=== PATIENT | male | born 1975 | race American Indian/Alaskan Native ===

== ENCOUNTER 2017-11-11 04:17 | Inpatient (IN) | payer OTHER ==
--- NOTE | 2017-11-11 04:39 | Emergency Department Report ---
ED Chest Pain HPI - General Stated Complaint: CHEST PAIN/SWEATS Time Seen by Provider: 11/11/17 04:33 Source: patient, EMS Mode of arrival: Stretcher Limitations: No Limitations - History of Present Illness Initial Comments: Patient is a 42-year-old male presents to the ER via EMS for chest pain and shortness of breath 1 day. Patient has a history of hypertension but has been noncompliant with his medications for 3 weeks. She states she's not been feeling well due to flulike symptoms and fatigue for 2 weeks. MD Complaint: chest pain -: Sudden Onset: during rest Pain Location: substernal, left chest Pain Radiation: none Severity scale (0 -10): 7 Quality: sharp, pressure Consistency: constant Improves With: rest Worsens With: exertion, movement re: nausea, vomting, dyspnea Other Symptoms: cough, fever Treatments Prior to Arrival: none Aspirin use within the Past 7 Days: (0) No - Related Data On Oral Contraceptives: No Allergies Allergy/AdvReac Type Severity Reaction Status Date / Time No Known Allergies Allergy Unverified 11/11/17 04:39 Heart Score - HEART Score History: Slightly suspicious EKG: Non-specific Age: < 45 Risk factors: 1-2 risk factors Troponin: 1-3x normal limit HEART Score: 3 ED Review of Systems ROS: Stated complaint: CHEST PAIN/SWEATS Other details as noted in HPI Comment: All other systems reviewed and negative Constitutional: fever, malaise, weakness Eyes: as per HPI ENT: as per HPI Respiratory: cough, shortness of breath Cardiovascular: chest pain, dyspnea on exertion Endocrine: no symptoms reported Musculoskeletal: as per HPI Skin: as per HPI Neurological: as per HPI, weakness Psychiatric: as per HPI Hematological/Lymphatic: as per HPI ED Past Medical Hx - Past Medical History Previous Medical History?: Yes Hx Hypertension: Yes ED Physical Exam - General Limitations: No Limitations General appearance: alert, in no apparent distress - Head Head exam: Present: atraumatic, normocephalic - Eye Eye exam: Present: normal appearance - ENT ENT exam: Present: mucous membranes moist - Neck Neck exam: Present: normal inspection - Respiratory Respiratory exam: Present: normal lung sounds bilaterally. Absent: respiratory distress - Cardiovascular Cardiovascular Exam: Present: regular rate, normal rhythm. Absent: systolic murmur, diastolic murmur, rubs, gallop - GI/Abdominal GI/Abdominal exam: Present: soft, normal bowel sounds - Rectal Rectal exam: Present: deferred - Extremities Exam Extremities exam: Present: normal inspection - Back Exam Back exam: Present: normal inspection - Neurological Exam Neurological exam: Present: alert, oriented X3 - Psychiatric Psychiatric exam: Present: normal affect, normal mood - Skin Skin exam: Present: warm, dry, intact, normal color. Absent: rash ED Course Vital Signs 11/11/17 11/11/17 11/11/17 05:36 05:41 06:08 Temperature 99.4 F Pulse Rate 106 H 98 H 95 H Respiratory 22 Rate Blood Pressure 215/152 170/122 Blood Pressure 185/131 [Left] O2 Sat by Pulse 95 Oximetry - Reevaluation(s) Reevaluation #1: Patient denies chest pain at this time 11/11/17 05:30 MARLA score - Marla Score Age > 65: (0) No Aspirin use within the Past 7 Days: (0) No 3 or more CAD Risk Factors: (0) No 2 or more Angina events in past 24 hrs: (0) No Known CAD with more than 50% Stenosis: (0) No Elevated Cardiac Markers: (1) Yes ST Deviation Greater than 0.5mm: (0) No MARLA Score: 1 ED Medical Decision Making - Lab Data Result diagrams: 11/11/17 05:26 11/11/17 05:26 - EKG Data -: EKG Interpreted by Me EKG shows normal: sinus rhythm Rate: tachycardia - EKG Data When compared to previous EKG there are: previous EKG unavailable Interpretation: no acute changes, normal EKG - Radiology Data Radiology results: report reviewed - Medical Decision Making Patient denies chest pain at this time. Case signed out to Dr Da Silva at 0600. - Differential Diagnosis cp/sob. pna. fever. Critical care attestation.: If time is entered above; I have spent that time in minutes in the direct care of this critically ill patient, excluding procedure time. ED Disposition Clinical Impression: Chest pain, Shortness of breath, Hypoxia Disposition: OP ADMIT IP TO THIS HOSP Is pt being admited?: Yes Does the pt Need Aspirin: No Condition: Critical Time of Disposition: 06:04
[2017-11-11] MEDS ORDERED: SODIUM CHLORIDE FLUSH SYRINGE 10 ML IV PRN (04:40)
[2017-11-11] MEDS ORDERED: LOPRESSOR IV ONE ×2 (04:52→06:04)
[2017-11-11] MEDS ORDERED: ASPIRIN PO ONE (04:52)
--- NOTE | 2017-11-11 05:09 | XRay Report ---
FINAL REPORT EXAM: XR CHEST 1V AP HISTORY: Chest Pain TECHNIQUE: AP portable view(s) of the chest obtained. PRIORS: None. FINDINGS: No mediastinal shift. Cardiac silhouette is mildly enlarged and exaggerated by portable technique. There is consolidative right lower lung airspace disease and patchy right upper lung opacities. No pneumothorax or definite effusion. Metallic radiodensities project over the right scapula. IMPRESSION: Consolidative right lower and patchy right upper lung airspace disease. PA and lateral chest radiographic follow-up to resolution is recommended. Metallic radiodensities project over the right scapula. Correlation with history of penetrating trauma is requested.
[2017-11-11 05:44] LABS: Hematocrit 45.8 % (35.5-45.6); Hemoglobin 15.5 gm/dl (11.8-15.2); Mean Corpuscular HGB Conc 34 % (32-34); Mean Corpuscular Hemoglobin 30 pg (28-32); Mean Corpuscular Volume 90 fl (84-94); Platelet Count 439 K/mm3 (140-440); Red Blood Count 5.11 M/mm3 (3.65-5.03); Red Cell Distribution Width 14.6 % (13.2-15.2)
[2017-11-11 06:08] LABS: White Blood Count 20.2 K/mm3 (4.5-11.0)
[2017-11-11 06:09] LABS: Creatine Kinase MB 6.9 ng/mL (0.0-4.0)
[2017-11-11 06:10] LABS: Albumin 3.9 g/dL (3.9-5); Albumin/Globulin Ratio 1.1 %; Bilirubin,Total 0.6 mg/dL (0.1-1.2); Calcium 9.8 mg/dL (8.4-10.2); Chloride 96.5 mmol/L (98-107); Potassium 3.5 mmol/L (3.6-5.0); Total Protein 7.5 g/dL (6.3-8.2)
[2017-11-11] MEDS ORDERED: DUONEB *Not for PRN Use IH ONE ×2 (06:11→09:30)
[2017-11-11] MEDS ORDERED: ZITHROMAX 500 MG in NACL 0.9% 250ML 250 ML IV ONE (06:11)
[2017-11-11] MEDS ORDERED: ROCEPHIN/NS 1 GM/50 ML 1 GM/50 ML BAG IV ONE (06:11)
[2017-11-11] MEDS ORDERED: NACL ONE (06:14)
--- NOTE | 2017-11-11 06:19 | Emergency Department Report ---
HPI - General Chief Complaint: Chest Pain Time Seen by Provider: 11/11/17 04:33 - HPI HPI: I was signed out this case by Dr Varghese. The patient was seen and examined by myself independently. This is a 42 yo AA M who presents to the ED with the complaint of SOB, Chest pain and mixed dry and productive cough. Overall the symptoms have been going on for the past 1-2 weeks and the patient thought he had the flu or an upper respiratory infection. However, today he had an argument with his girlfriend and began having some midsternal chest pain. It was associated with some diaphoresis. He has felt like he might have a fever but has not checked his temperature. He has had a decreased appetite and says he has not eaten anything substantial in days. he denies any vomiting, back pain. No recent travel or sick contacts at home. he has a history of HTN but does not follow with a PCP and is not on any regular medication. He denies tobacco use, but does admit to smoking marijuana. He did not take anything for his symptoms prior to presentation. ED Past Medical Hx - Past Medical History Previous Medical History?: Yes Hx Hypertension: Yes ED Review of Systems ROS: Stated complaint: CHEST PAIN/SWEATS Other details as noted in HPI Constitutional: diaphoresis, fever Eyes: denies: eye pain, eye discharge, vision change ENT: denies: ear pain, throat pain Respiratory: cough, shortness of breath Cardiovascular: chest pain, dyspnea on exertion Gastrointestinal: denies: abdominal pain, vomiting Genitourinary: denies: urgency, dysuria Musculoskeletal: denies: back pain, joint swelling, arthralgia Skin: denies: rash, lesions Neurological: denies: headache, weakness, paresthesias Physical Exam - Physical Exam Vital Signs: Vital Signs 11/11/17 11/11/17 11/11/17 05:36 05:41 06:08 Temperature 99.4 F Pulse Rate 106 H 98 H 95 H Respiratory 22 Rate Blood Pressure 215/152 170/122 Blood Pressure 185/131 [Left] O2 Sat by Pulse 95 Oximetry Physical Exam: GENERAL: The patient is well-developed well-nourished. HENT: Normocephalic. Atraumatic. Patient has moist mucous membranes. EYES: Extraocular motions are intact. Pupils equal reactive to light bilaterally. NECK: Supple. Trachea is midline. CHEST/LUNGS: There is some mild wheezing with some right-sided rhonchi. There is mild tachypnea but no accessory muscle use. There is no respiratory distress noted. HEART/CARDIOVASCULAR: Regular. There is mild tachycardia. There is no murmur. ABDOMEN: Abdomen is soft, nontender. Patient has normal bowel sounds. There is no abdominal distention. SKIN: Skin is warm and dry. NEURO: The patient is awake, alert, and oriented. The patient is cooperative. The patient has no focal neurologic deficits. The patient has normal speech. MUSCULOSKELETAL: There is no tenderness or deformity. There is no limitation range of motion. There is no evidence of acute injury. ED Course Vital Signs 11/11/17 11/11/17 11/11/17 05:36 05:41 06:08 Temperature 99.4 F Pulse Rate 106 H 98 H 95 H Respiratory 22 Rate Blood Pressure 215/152 170/122 Blood Pressure 185/131 [Left] O2 Sat by Pulse 95 Oximetry ED Medical Decision Making - Lab Data Result diagrams: 11/11/17 05:26 11/11/17 05:26 - EKG Data -: EKG Interpreted by Fl EKG shows normal: sinus rhythm, axis (left axis deviation), intervals, QRS complexes (LVH), ST-T waves (nonspecific ST-T waves) Rate: tachycardia (106 bpm) - EKG Data When compared to previous EKG there are: previous EKG unavailable Interpretation: other (sinus tachycardia, left axis deviation, LVH, nonspecific ST-T waves) - Radiology Data Radiology results: report reviewed EXAM: XR CHEST 1V AP HISTORY: Chest Pain TECHNIQUE: AP portable view(s) of the chest obtained. PRIORS: None. FINDINGS: No mediastinal shift. Cardiac silhouette is mildly enlarged and exaggerated by portable technique. There is consolidative right lower lung airspace disease and patchy right upper lung opacities. No pneumothorax or definite effusion. Metallic radiodensities project over the right scapula. IMPRESSION: Consolidative right lower and patchy right upper lung airspace disease. PA and lateral chest radiographic follow-up to resolution is recommended. Metallic radiodensities project over the right scapula. Correlation with history of penetrating trauma is requested. Transcribed By: RACHEL Dictated By: DELMI TURNER MD Electronically Authenticated By: DELMI TURNER MD Signed Date/Time: 11/11/17 0106 LUNG SCAN, VENTILATION AND PERFUSION: History: Shortness of breath, elevated d-dimer. Technique: 5mci of Tc99m MAA was infused for the perfusion images. 15mci XE 133 gas was inhaled for the ventilatory images. Correlation is made with a chest x-ray dated 11/11/17 at 0450 hours. Findings: Inhalation of Xenon gas demonstrates slightly asymmetric uptake of the radiotracer with the left lung receiving more activity. There is adequate washout of the radiotracer on equilibrium images. After injection of Technetium 99m macroaggregated albumin gamma camera imaging of the lungs in multiple projections demonstrates large areas of relative decreased radiotracer accumulation throughout the right lung and left lower lobe. Chest x-ray suggests infiltrates or focal edema in these areas. It is unclear if this represents perfusion defects secondary to pneumonia, pulmonary edema or pulmonary emboli. IMPRESSION: Intermediate to high probability of pulmonary embolus. There are large areas of decreased perfusion to the right lung and left lower lobe, pulmonary emboli are difficult to exclude. Chest x-ray suggests volume overload and bilateral pulmonary edema or infiltrates. These findings were discussed with Dr. Sherman in the emergency department at 0740 hours. Transcribed By: TTR Dictated By: TRENTON OWEN JR, MD Electronically Authenticated By: TRENTON OWEN JR, MD Signed Date/Time: 11/11/17 0752 - Medical Decision Making The patient's labs show some renal insufficiency which may be acute versus chronic but is unknown since the patient does not see a physician on a regular basis. He has elevated troponin and elevated BNP levels which could be secondary to his renal sufficiency but also may be appropriate levels given his chest pain and shortness of breath. Chest x-ray shows right lower and right upper consolidative and patchy airspace disease concerning for pneumonia. V/Q scan has some perfusion deficits in these areas which also could show some fluid collection but ended up giving the VQ scan A intermediate to high probability of pulmonary embolism. The patient has been covered with Rocephin and azithromycin and will be placed on a heparin drip and will be admitted to the hospital for further evaluation and treatment. He has been accepted by the hospitalist service. - Differential Diagnosis pneumonia, CHF, PE, AL Critical Care Time: Yes Critical care time in (mins) excluding proc time.: 31 Critical care attestation.: If time is entered above; I have spent that time in minutes in the direct care of this critically ill patient, excluding procedure time. Critical care time spent on this patient during his initial evaluation, multiple re-evaluations, interpretation of labs and imaging, discussion with the radiologist, t ordering an titration of heparin drip, ordering of antibiotics, discussion and review with the patient himself. This patient was initially obtained from a colleague but the 31 minutes of critical care time mentioned was done by myself independent of any workup or evaluation done by my colleague. Critical Care Time: 31 minutes ED Disposition Clinical Impression: Shortness of breath, Hypoxia, Elevated troponin I level, Hypertensive urgency Chest pain Qualifiers: Chest pain type: unspecified Qualified Code(s): R07.9 - Chest pain, unspecified Pulmonary embolism Qualifiers: Pulmonary embolism type: other Chronicity: acute Acute cor pulmonale presence: without acute cor pulmonale Qualified Code(s): I26.99 - Other pulmonary embolism without acute cor pulmonale Disposition: 09 OP ADMIT IP TO THIS HOSP Is pt being admited?: Yes Condition: Serious Referrals: PRIMARY CARE, [Primary Care Provider] - 3-5 Days Time of Disposition: 09:20
[2017-11-11] MEDS ORDERED: cefTRIAXone 1 GM in NACL 0.9% 20 ML IV ONE (06:30)
[2017-11-11 06:44] LABS: Basophils % (Manual) 0 % (0.0-1.8); Blastocytes % (Manual) 0 %
[2017-11-11 06:45] LABS: Diff Status Complete; Platelet Estimate Consistent w Auto
[2017-11-11] MEDS ORDERED: MORPHINE IV ONE (06:46)
--- NOTE | 2017-11-11 07:57 | Nuclear Medicine Report ---
LUNG SCAN, VENTILATION AND PERFUSION: History: Shortness of breath, elevated d-dimer. Technique: 5mci of Tc99m MAA was infused for the perfusion images. 15mci XE 133 gas was inhaled for the ventilatory images. Correlation is made with a chest x-ray dated 11/11/17 at 0450 hours. Findings: Inhalation of Xenon gas demonstrates slightly asymmetric uptake of the radiotracer with the left lung receiving more activity. There is adequate washout of the radiotracer on equilibrium images. After injection of Technetium 99m macroaggregated albumin gamma camera imaging of the lungs in multiple projections demonstrates large areas of relative decreased radiotracer accumulation throughout the right lung and left lower lobe. Chest x-ray suggests infiltrates or focal edema in these areas. It is unclear if this represents perfusion defects secondary to pneumonia, pulmonary edema or pulmonary emboli. IMPRESSION: Intermediate to high probability of pulmonary embolus. There are large areas of decreased perfusion to the right lung and left lower lobe, pulmonary emboli are difficult to exclude. Chest x-ray suggests volume overload and bilateral pulmonary edema or infiltrates. These findings were discussed with Dr. Sherman in the emergency department at 0740 hours.
[2017-11-11] MEDS ORDERED: HEPARIN 10,000 UNITS/10 ML IV ONE (08:05)
[2017-11-11 08:33] LABS: Partial Thromboplastin Time 31.8 Sec. (24.2-36.6)
[2017-11-11] MEDS: HEPARIN/ 0.45% NACL-25,000 UNIT/500 ML 25,000 UNIT/500 ML BAG IV SCH (08:51)
[2017-11-11] MEDS ORDERED: ZOFRAN IV PRN (09:13)
--- NOTE | 2017-11-11 09:25 | History and Physical Report ---
<MONISHA RUBIN - Last Filed: 11/11/17 14:38> History of Present Illness Date of examination: 11/11/17 Date of admission: 11/11/2017 Chief complaint: Chest pain and shortness of breath History of present illness: Patient is a 42 years old male with past medical history of hypertension and diabetes mellitus, who presents to the ED with the complaint of SOB, Chest pain and mixed dry and productive cough. Patient was have been having dry cough, shortness of breath and flu-like symptoms for the past 2 weeks. Patient devolved yesterday Midsternal chest pain yesterday. He states that the pain began while having argument with his girlfriend. Patient described the pain as, sharp, tightness and squeezing in his chest;non- radiating. The sharp pain lasted around 5-10minute. There is no aggravating or reliving factors.He did not take anything for his symptoms prior to presentation. The painful episodes did not increase in intensity or severity during this time. Patient denies having chest pain at present time. He denies nausea, vomiting during these episodes of pain. He experienced shortness of breath, nausea, and diaphoresis during these episodes of pain. He denies vomiting. He has never had chest pain in the past. Patient admitted not taken his metformin and antihypertensive medication for the past 3 weeks because he ran out. Past History Past Medical History: diabetes, hypertension Past Surgical History: No surgical history Social history: other. denies: smoking, alcohol abuse Medications and Allergies Allergies Allergy/AdvReac Type Severity Reaction Status Date / Time No Known Allergies Allergy Verified 11/11/17 06:13 Active Meds: Active Medications Heparin Sodium/Sodium Chloride (Heparin/ 0.45% Nacl-25,000 Unit/500 Ml) 25,000 unit in 500 mls @ 30 mls/hr IV TITR FAVIAN; 1,500 UNITS/HR PRN Reason: Protocol Last Admin: 11/11/17 08:51 Dose: 1,500 units/hr, 30 mls/hr Sodium Chloride (Sodium Chloride Flush Syringe 10 Ml) 10 ml IV PRN PRN PRN Reason: LINE FLUSH Last Admin: 11/11/17 05:34 Dose: 10 ml Review of Systems Constitutional: no weight gain, no fever, no chills Cardiovascular: chest pain, lightheadedness, shortness of breath, dyspnea on exertion Respiratory: cough, shortness of breath, dyspnea on exertion Gastrointestinal: no nausea, no vomiting, no diarrhea Genitourinary Male: no hematuria, no discharge Rectal: no incontinence, no bleeding Musculoskeletal: no arm numbness/tingling, no low back pain, no shooting leg pain Integumentary: no redness, no sores, no wounds Neurological: no parathesias, no numbness, no tingling Psychiatric: no insomnia, no hypersomnia, no change in libido Endocrine: no polyphagia, no excessive thirst, no polydipsia Hematologic/Lymphatic: no easy bruising, no easy bleeding Allergic/Immunologic: no urticaria, no allergic rhinitis Exam - Constitutional Vitals: Temp Pulse Resp BP Pulse Ox 99.4 F 95 H 22 170/122 95 11/11/17 05:36 11/11/17 06:08 11/11/17 05:36 11/11/17 06:08 11/11/17 05:36 General appearance: Present: no acute distress - EENT Eyes: Present: PERRL ENT: hearing intact - Neck Neck: Present: supple - Respiratory Respiratory effort: normal Respiratory: bilateral: CTA, diminished - Cardiovascular Rhythm: regular Heart Sounds: Present: S1 & S2 - Extremities Extremities: no ischemia - Abdominal General gastrointestinal: Present: soft, non-tender Male genitourinary: Present: deferred - Rectal Rectal Exam: deferred - Integumentary Integumentary: Present: clear, warm, dry - Musculoskeletal Musculoskeletal: strength equal bilaterally - Psychiatric Psychiatric: appropriate mood/affect - Neurologic Neurologic: moves all extremities - Allied Health Allied health notes reviewed: nursing Results - Labs CBC & Chem 7: 11/11/17 05:26 11/11/17 05:26 Labs: Laboratory Last Values WBC 20.2 K/mm3 (4.5-11.0) H 11/11/17 05:26 RBC 5.11 M/mm3 (3.65-5.03) H 11/11/17 05:26 Hgb 15.5 gm/dl (11.8-15.2) H 11/11/17 05:26 Hct 45.8 % (35.5-45.6) H 11/11/17 05:26 MCV 90 fl (84-94) 11/11/17 05:26 MCH 30 pg (28-32) 11/11/17 05:26 MCHC 34 % (32-34) 11/11/17 05:26 RDW 14.6 % (13.2-15.2) 11/11/17 05:26 Plt Count 439 K/mm3 (140-440) 11/11/17 05:26 Add Manual Diff Complete 11/11/17 05:26 Total Counted 100 11/11/17 05:26 Seg Neuts % (Manual) 89.0 % (40.0-70.0) H 11/11/17 05:26 Band Neutrophils % 0 % 11/11/17 05:26 Lymphocytes % (Manual) 8.0 % (13.4-35.0) L 11/11/17 05:26 Reactive Lymphs % (Man) 1.0 % 11/11/17 05:26 Monocytes % (Manual) 1.0 % (0.0-7.3) 11/11/17 05:26 Eosinophils % (Manual) 1.0 % (0.0-4.3) 11/11/17 05:26 Basophils % (Manual) 0 % (0.0-1.8) 11/11/17 05:26 Metamyelocytes % 0 % 11/11/17 05:26 Myelocytes % 0 % 11/11/17 05:26 Promyelocytes % 0 % 11/11/17 05:26 Blast Cells % 0 % 11/11/17 05:26 Nucleated RBC % Not Reportable 11/11/17 05:26 Seg Neutrophils # Man 18.0 K/mm3 (1.8-7.7) H 11/11/17 05:26 Band Neutrophils # 0.0 K/mm3 11/11/17 05:26 Lymphocytes # (Manual) 1.6 K/mm3 (1.2-5.4) 11/11/17 05:26 Abs React Lymphs (Man) 0.2 K/mm3 11/11/17 05:26 Monocytes # (Manual) 0.2 K/mm3 (0.0-0.8) 11/11/17 05:26 Eosinophils # (Manual) 0.2 K/mm3 (0.0-0.4) 11/11/17 05:26 Basophils # (Manual) 0.0 K/mm3 (0.0-0.1) 11/11/17 05:26 Metamyelocytes # 0.0 K/mm3 11/11/17 05:26 Myelocytes # 0.0 K/mm3 11/11/17 05:26 Promyelocytes # 0.0 K/mm3 11/11/17 05:26 Blast Cells # 0.0 K/mm3 11/11/17 05:26 WBC Morphology Not Reportable 11/11/17 05:26 Hypersegmented Neuts Not Reportable 11/11/17 05:26 Hyposegmented Neuts Not Reportable 11/11/17 05:26 Hypogranular Neuts Not Reportable 11/11/17 05:26 Smudge Cells Not Reportable 11/11/17 05:26 Toxic Granulation Not Reportable 11/11/17 05:26 Toxic Vacuolation Not Reportable 11/11/17 05:26 Dohle Bodies Not Reportable 11/11/17 05:26 Pelger-Huet Anomaly Not Reportable 11/11/17 05:26 Lola Rods Not Reportable 11/11/17 05:26 Platelet Estimate Consistent w auto 11/11/17 05:26 Clumped Platelets Not Reportable 11/11/17 05:26 Plt Clumps, EDTA Not Reportable 11/11/17 05:26 Large Platelets Not Reportable 11/11/17 05:26 Giant Platelets Not Reportable 11/11/17 05:26 Platelet Satelliting Not Reportable 11/11/17 05:26 Plt Morphology Comment Not Reportable 11/11/17 05:26 RBC Morphology Not Reportable 11/11/17 05:26 Dimorphic RBCs Not Reportable 11/11/17 05:26 Polychromasia Not Reportable 11/11/17 05:26 Hypochromasia Not Reportable 11/11/17 05:26 Poikilocytosis Not Reportable 11/11/17 05:26 Anisocytosis Not Reportable 11/11/17 05:26 Microcytosis Not Reportable 11/11/17 05:26 Macrocytosis Not Reportable 11/11/17 05:26 Spherocytes Not Reportable 11/11/17 05:26 Pappenheimer Bodies Not Reportable 11/11/17 05:26 Sickle Cells Not Reportable 11/11/17 05:26 Target Cells Not Reportable 11/11/17 05:26 Tear Drop Cells Not Reportable 11/11/17 05:26 Ovalocytes Not Reportable 11/11/17 05:26 Helmet Cells Not Reportable 11/11/17 05:26 [place] Bodies Not Reportable 11/11/17 05:26 [place] Rings Not Reportable 11/11/17 05:26 [place] Cells Not Reportable 11/11/17 05:26 Bite Cells Not Reportable 11/11/17 05:26 Crenated Cell Not Reportable 11/11/17 05:26 Elliptocytes Not Reportable 11/11/17 05:26 Acanthocytes (Spur) Not Reportable 11/11/17 05:26 Rouleaux Not Reportable 11/11/17 05:26 Hemoglobin C Crystals Not Reportable 11/11/17 05:26 Schistocytes Not Reportable 11/11/17 05:26 Malaria parasites Not Reportable 11/11/17 05:26 Param Bodies Not Reportable 11/11/17 05:26 Hem Pathologist Commnt No 11/11/17 05:26 PT 13.7 Sec. (12.2-14.9) 11/11/17 08:10 INR 1.00 (0.87-1.13) 11/11/17 08:10 APTT 31.8 Sec. (24.2-36.6) 11/11/17 08:10 D-Dimer 886.47 ng/mlDDU (0-234) H 11/11/17 05:26 Sodium 142 mmol/L (137-145) 11/11/17 05:26 Potassium 3.5 mmol/L (3.6-5.0) L 11/11/17 05:26 Chloride 96.5 mmol/L (98-107) L 11/11/17 05:26 Carbon Dioxide 27 mmol/L (22-30) 11/11/17 05:26 Anion Gap 22 mmol/L 11/11/17 05:26 BUN 26 mg/dL (9-20) H 11/11/17 05:26 Creatinine 2.3 mg/dL (0.8-1.5) H 11/11/17 05:26 Estimated GFR 38 ml/min 11/11/17 05:26 BUN/Creatinine Ratio 11 % 11/11/17 05:26 Glucose 185 mg/dL (75-100) H 11/11/17 05:26 Lactic Acid 1.20 mmol/L (0.7-2.0) 11/11/17 06:26 Calcium 9.8 mg/dL (8.4-10.2) 11/11/17 05:26 Total Bilirubin 0.60 mg/dL (0.1-1.2) 11/11/17 05:26 AST 17 units/L (5-40) 11/11/17 05:26 ALT 27 units/L (7-56) 11/11/17 05:26 Alkaline Phosphatase 108 units/L (35-129) 11/11/17 05:26 Total Creatine Kinase 205 units/L (55-170) H 11/11/17 05:26 CK-MB (CK-2) 6.9 ng/mL (0.0-4.0) H 11/11/17 05:26 CK-MB (CK-2) Rel Index 3.3 (0-4) 11/11/17 05:26 Troponin T 0.050 ng/mL (0.00-0.029) H 11/11/17 08:07 NT-Pro-B Natriuret Pep 17601 pg/mL (0-450) H 11/11/17 05:26 Total Protein 7.5 g/dL (6.3-8.2) 11/11/17 05:26 Albumin 3.9 g/dL (3.9-5) 11/11/17 05:26 Albumin/Globulin Ratio 1.1 % 11/11/17 05:26 Triglycerides 271 mg/dL (2-149) H 11/11/17 05:26 Cholesterol 243 mg/dL (50-199) H 11/11/17 05:26 LDL Cholesterol Direct 146 mg/dL (50-130) H 11/11/17 05:26 HDL Cholesterol 43 mg/dL (40-59) 11/11/17 05:26 Cholesterol/HDL Ratio 5.65 % 11/11/17 05:26 - Imaging and Cardiology Chest x-ray: image reviewed (consolidative right lower and patchy to right upper lung) Assessment and Plan Assessment and plan: Patient is a 42 years old male with past medical history of hypertension and diabetes mellitus, who presents to the ED with the complaint of SOB, Chest pain and mixed dry and productive cough. Patient was have been having dry cough, shortness of breath and flu-like symptoms for the past 2 weeks. Patient devolved yesterday Midsternal chest pain yesterday. Sepsis secondray to Pneumonia Culture collected prior to antibiotic Follow blood cultures IV empiric Rocephin and azithromycin given in the ED. We 'll change him to IV Levaquin Supportive care Pneumonia Chest xray shows consolidative right lower and patchy to right upper lung Started on IV Levaquin Chest Pain We will admit to telemetry floor. EKG normal sinus, no ST elevation or T-wave inversion. Positive cardiac enzyme X3 Start on aspirin Nitroglycerin when necessary Morphine ordered for pain Stress test ordered. Cardiology evaluation Acute septic Pulmonary embolism VQ scan revealed intermediate to high probability pulmonary embolus Started on heparin treatment Acute renal failure/vasomotor nephropathy Started on IV fluids, as renal function not improve with fluids we will consider nephrology RENAL ultrasound Repeat BMP in the a.m. Closely monitor Hypokalemia Replaced Repeat BMP Closely monitor electrolytes Hypertension Resume home antihypertensive medication IV hydralazine for SBP>160 Closely monitor blood pressure Hyperlipidemia Started on Lipitor Elevated D-dimer Secondary to pulmonary embolus; on heparin drip DVT prophylaxis heparin drip Advance Directives: Yes VTE prophylaxis?: Chemical Contraindication Mechanical VTE Prophylaxis: Treatment Not Indicated Plan of care discussed with patient/family: Yes <LFOR HUGHES M - Last Filed: 11/12/17 16:45> History of Present Illness Date of admission: 11/11/17 09:13 Medications and Allergies Active Meds: Active Medications Acetaminophen (Tylenol) 650 mg PO Q4H PRN PRN Reason: Pain MILD(1-3)/Fever >100.5/FOWLER Last Admin: 11/11/17 22:43 Dose: 650 mg Albuterol/Ipratropium (Duoneb *Not For Prn Use*) 1 ampul IH Q6HRT [facility] Last Admin: 11/12/17 15:51 Dose: 1 ampul Amlodipine Besylate (Norvasc) 10 mg PO QDAY [facility] Last Admin: 11/12/17 10:50 Dose: 10 mg Aspirin (Aspirin) 325 mg PO QDAY [facility] Last Admin: 11/12/17 10:50 Dose: 325 mg Atorvastatin Calcium (Lipitor) 40 mg PO QHS [facility] Last Admin: 11/11/17 22:41 Dose: 40 mg Bisacodyl (Dulcolax) 10 mg VT QDAY PRN PRN Reason: Constipation unrelieved by MOM Dextrose (D50w (25gm) Syringe) 50 ml IV PRN PRN PRN Reason: Hypoglycemia Hydralazine HCl (Apresoline) 10 mg IV Q4H PRN PRN Reason: Blood Pressure Last Admin: 11/12/17 14:38 Dose: 10 mg Heparin Sodium/Sodium Chloride (Heparin/ 0.45% Nacl-25,000 Unit/500 Ml) 25,000 unit in 500 mls @ 30 mls/hr IV TITR FAVIAN; 1,500 UNITS/HR PRN Reason: Protocol Last Admin: 11/12/17 14:35 Dose: 2,100 units/hr, 42 mls/hr Piperacillin Sod/Tazobactam Sod (Zosyn/Ns 4.5gm/100ml) 4.5 gm in 100 mls @ 200 mls/hr IV Q6HR FAVIAN PRN Reason: Protocol Insulin Aspart (Novolog) 0 units SUB-Q AC FAVIAN PRN Reason: Protocol Last Admin: 11/12/17 14:36 Dose: 4 units Insulin Aspart (Novolog) 0 units SUB-Q QHS FAVIAN PRN Reason: Protocol Last Admin: 11/11/17 22:42 Dose: 3 units Metoprolol Tartrate (Lopressor) 50 mg PO TID FAVIAN Morphine Sulfate (Morphine) 2 mg IV Q4H PRN PRN Reason: Pain, Moderate (4-6) Last Admin: 11/12/17 05:15 Dose: 2 mg Ondansetron HCl (Zofran) 4 mg IV Q8H PRN PRN Reason: N/V unrelieved by Reglan Last Admin: 11/11/17 17:24 Dose: 4 mg Sodium Chloride (Sodium Chloride Flush Syringe 10 Ml) 10 ml IV PRN PRN PRN Reason: LINE FLUSH Last Admin: 11/11/17 05:34 Dose: 10 ml Vancomycin HCl (Vancomycin Pharmacy To Dose) 1 each IV PKCONSULT FAVIAN PRN Reason: Protocol Exam - Constitutional Vitals: Temp Pulse Resp BP Pulse Ox 97.6 F 114 H 33 H 168/101 91 11/12/17 07:58 11/12/17 16:25 11/12/17 16:25 11/12/17 14:38 11/12/17 15:51 Results - Labs CBC & Chem 7: 11/12/17 04:52 11/12/17 04:52 Labs: Laboratory Last Values WBC 28.6 K/mm3 (4.5-11.0) H 11/12/17 04:52 RBC 4.42 M/mm3 (3.65-5.03) 11/12/17 04:52 Hgb 13.2 gm/dl (11.8-15.2) 11/12/17 04:52 Hct 39.6 % (35.5-45.6) D 11/12/17 04:52 MCV 90 fl (84-94) 11/12/17 04:52 MCH 30 pg (28-32) 11/12/17 04:52 MCHC 33 % (32-34) 11/12/17 04:52 RDW 14.9 % (13.2-15.2) 11/12/17 04:52 Plt Count 445 K/mm3 (140-440) H 11/12/17 04:52 Add Manual Diff Complete 11/12/17 04:52 Total Counted 100 11/12/17 04:52 Seg Neuts % (Manual) 90.0 % (40.0-70.0) H 11/12/17 04:52 Band Neutrophils % 0 % 11/12/17 04:52 Lymphocytes % (Manual) 5.0 % (13.4-35.0) L 11/12/17 04:52 Reactive Lymphs % (Man) 0 % 11/12/17 04:52 Monocytes % (Manual) 5.0 % (0.0-7.3) 11/12/17 04:52 Eosinophils % (Manual) 0 % (0.0-4.3) 11/12/17 04:52 Basophils % (Manual) 0 % (0.0-1.8) 11/12/17 04:52 Metamyelocytes % 0 % 11/12/17 04:52 Myelocytes % 0 % 11/12/17 04:52 Promyelocytes % 0 % 11/12/17 04:52 Blast Cells % 0 % 11/12/17 04:52 Nucleated RBC % Not Reportable 11/12/17 04:52 Seg Neutrophils # Man 25.7 K/mm3 (1.8-7.7) H 11/12/17 04:52 Band Neutrophils # 0.0 K/mm3 11/12/17 04:52 Lymphocytes # (Manual) 1.4 K/mm3 (1.2-5.4) 11/12/17 04:52 Abs React Lymphs (Man) 0.0 K/mm3 11/12/17 04:52 Monocytes # (Manual) 1.4 K/mm3 (0.0-0.8) H 11/12/17 04:52 Eosinophils # (Manual) 0.0 K/mm3 (0.0-0.4) 11/12/17 04:52 Basophils # (Manual) 0.0 K/mm3 (0.0-0.1) 11/12/17 04:52 Metamyelocytes # 0.0 K/mm3 11/12/17 04:52 Myelocytes # 0.0 K/mm3 11/12/17 04:52 Promyelocytes # 0.0 K/mm3 11/12/17 04:52 Blast Cells # 0.0 K/mm3 11/12/17 04:52 WBC Morphology Not Reportable 11/12/17 04:52 Hypersegmented Neuts Not Reportable 11/12/17 04:52 Hyposegmented Neuts Not Reportable 11/12/17 04:52 Hypogranular Neuts Not Reportable 11/12/17 04:52 Smudge Cells Not Reportable 11/12/17 04:52 Toxic Granulation Not Reportable 11/12/17 04:52 Toxic Vacuolation Not Reportable 11/12/17 04:52 Dohle Bodies Not Reportable 11/12/17 04:52 Pelger-Huet Anomaly Not Reportable 11/12/17 04:52 Lola Rods Not Reportable 11/12/17 04:52 Platelet Estimate Consistent w auto 11/12/17 04:52 Clumped Platelets Not Reportable 11/12/17 04:52 Plt Clumps, EDTA Not Reportable 11/12/17 04:52 Large Platelets Not Reportable 11/12/17 04:52 Giant Platelets Not Reportable 11/12/17 04:52 Platelet Satelliting Not Reportable 11/12/17 04:52 Plt Morphology Comment Not Reportable 11/12/17 04:52 RBC Morphology Normal 11/12/17 04:52 Dimorphic RBCs Not Reportable 11/12/17 04:52 Polychromasia Not Reportable 11/12/17 04:52 Hypochromasia Not Reportable 11/12/17 04:52 Poikilocytosis Not Reportable 11/12/17 04:52 Anisocytosis Not Reportable 11/12/17 04:52 Microcytosis Not Reportable 11/12/17 04:52 Macrocytosis Not Reportable 11/12/17 04:52 Spherocytes Not Reportable 11/12/17 04:52 Pappenheimer Bodies Not Reportable 11/12/17 04:52 Sickle Cells Not Reportable 11/12/17 04:52 Target Cells Not Reportable 11/12/17 04:52 Tear Drop Cells Not Reportable 11/12/17 04:52 Ovalocytes Not Reportable 11/12/17 04:52 Helmet Cells Not Reportable 11/12/17 04:52 [place] Bodies Not Reportable 11/12/17 04:52 [place] Rings Not Reportable 11/12/17 04:52 [place] Cells Not Reportable 11/12/17 04:52 Bite Cells Not Reportable 11/12/17 04:52 Crenated Cell Not Reportable 11/12/17 04:52 Elliptocytes Not Reportable 11/12/17 04:52 Acanthocytes (Spur) Not Reportable 11/12/17 04:52 Rouleaux Not Reportable 11/12/17 04:52 Hemoglobin C Crystals Not Reportable 11/12/17 04:52 Schistocytes Not Reportable 11/12/17 04:52 Malaria parasites Not Reportable 11/12/17 04:52 Param Bodies Not Reportable 11/12/17 04:52 Hem Pathologist Commnt No 11/12/17 04:52 PT 13.7 Sec. (12.2-14.9) 11/11/17 08:10 INR 1.00 (0.87-1.13) 11/11/17 08:10 APTT 31.8 Sec. (24.2-36.6) 11/11/17 08:10 D-Dimer 886.47 ng/mlDDU (0-234) H 11/11/17 05:26 Heparin Anti-Xa Level 0.15 U.I./ml (0.3-0.7) L 11/12/17 11:17 POC ABG pH 7.456 (7.35-7.45) H 11/11/17 20:39 POC ABG pCO2 36.0 (35-45) 11/11/17 20:39 POC ABG pO2 77 (80-105) L 11/11/17 20:39 POC ABG HCO3 25.3 11/11/17 20:39 POC ABG Total CO2 26 11/11/17 20:39 POC ABG O2 Sat 96 11/11/17 20:39 POC ABG Base Excess 1 11/11/17 20:39 FiO2 100 % 11/11/17 20:39 Sodium 138 mmol/L (137-145) 11/12/17 04:52 Potassium 3.9 mmol/L (3.6-5.0) 11/12/17 04:52 Chloride 95.6 mmol/L (98-107) L 11/12/17 04:52 Carbon Dioxide 24 mmol/L (22-30) 11/12/17 04:52 Anion Gap 22 mmol/L 11/12/17 04:52 BUN 35 mg/dL (9-20) H 11/12/17 04:52 Creatinine 2.6 mg/dL (0.8-1.5) H 11/12/17 04:52 Estimated GFR 33 ml/min 11/12/17 04:52 BUN/Creatinine Ratio 13 % 11/12/17 04:52 Glucose 143 mg/dL (75-100) H 11/12/17 04:52 POC Glucose 262 (70-105) H 11/12/17 11:53 Hemoglobin A1c 6.6 % (4-6) H 11/11/17 09:34 Lactic Acid 1.20 mmol/L (0.7-2.0) 11/11/17 06:26 Calcium 9.0 mg/dL (8.4-10.2) 11/12/17 04:52 Total Bilirubin 0.60 mg/dL (0.1-1.2) 11/11/17 05:26 AST 17 units/L (5-40) 11/11/17 05:26 ALT 27 units/L (7-56) 11/11/17 05:26 Alkaline Phosphatase 108 units/L (35-129) 11/11/17 05:26 Total Creatine Kinase 205 units/L (55-170) H 11/11/17 05:26 CK-MB (CK-2) 6.9 ng/mL (0.0-4.0) H 11/11/17 05:26 CK-MB (CK-2) Rel Index 3.3 (0-4) 11/11/17 05:26 Troponin T 0.047 ng/mL (0.00-0.029) H 11/11/17 18:00 NT-Pro-B Natriuret Pep 79758 pg/mL (0-450) H 11/11/17 05:26 Total Protein 7.5 g/dL (6.3-8.2) 11/11/17 05:26 Albumin 3.9 g/dL (3.9-5) 11/11/17 05:26 Albumin/Globulin Ratio 1.1 % 11/11/17 05:26 Triglycerides 271 mg/dL (2-149) H 11/11/17 05:26 Cholesterol 243 mg/dL (50-199) H 11/11/17 05:26 LDL Cholesterol Direct 146 mg/dL (50-130) H 11/11/17 05:26 HDL Cholesterol 43 mg/dL (40-59) 11/11/17 05:26 Cholesterol/HDL Ratio 5.65 % 11/11/17 05:26 Assessment and Plan Assessment and plan: I saw and evaluated the patient. I agree with the findings and the plan of care as documented in the Nurse Practitioner's H/P note.
[2017-11-11] MEDS ORDERED: TYLENOL PO PRN (10:00)
[2017-11-11] MEDS ORDERED: ZITHROMAX 500 MG in NACL 0.9% 250ML 250 ML IV SCH (10:00)
[2017-11-11] MEDS ORDERED: DULCOLAX PR PRN (10:00)
[2017-11-11] MEDS ORDERED: D50W (25GM) Syringe IV PRN (10:00)
[2017-11-11] MEDS: ASPIRIN PO SCH (10:23)
[2017-11-11] MEDS: NOVOLOG SUB-Q SCH ×3 (12:48→22:42)
[2017-11-11] MEDS ORDERED: K-DUR PO NR (14:30)
--- NOTE | 2017-11-11 14:49 | Consultation ---
History of Present Illness Consult date: 11/11/17 Requesting physician: MONISHA RUBIN Consult reason: chest pain History of present illness: The pt is a 42 YO male with a past medical history significant for HTN, PNA (5 years ago requiring mechanical ventilation), and marijuana use. He is previously unknown to our practice. He presented with c/o SOB, chest pain and cold-like symptoms. He states that for the past 1 week he has been experiencing SOB, possible fever, chills, chest congestion, and dry cough and thought he was suffering from the flu. Last night, he was arguing with his girlfriend when he noted the onset of midsternal chest tightness. The pain was associated with some diaphoresis. He then called EMS. He denies any palpitations, n/v, dizziness or syncope. His BP following ED arrival was noted to be 215/152. He reports that he ran out of his anti-hypertensive medications, including lopressor, 2 weeks ago and he does not regularly see a PCP. Also following arrival, CXR showed consolidative right lower and patchy right upper lung airspace disease concerning for PNA. DDimer was elevated and V/Q showed intermediate to high probability of PE with large areas of decreased perfusion to right lung and left lower lobe, pulm emboli difficult to exclude. WBC 20.2; BUN/Cr 26/2.3; K+ 3.5; pro-BNP 28327; trop 0.056 -> 0.050 -> 0.044. On evaluation, pt c/o SOB but reports chest pain has resolved. Pt denies any prior cardiac issues or cardiac w/u. Past History Past Medical History: diabetes, hypertension Past Surgical History: No surgical history Social history: other (marijuana use). denies: smoking, alcohol abuse Medications and Allergies Allergies Allergy/AdvReac Type Severity Reaction Status Date / Time No Known Allergies Allergy Verified 11/11/17 06:13 Active Meds: Active Medications Acetaminophen (Tylenol) 650 mg PO Q4H PRN PRN Reason: Pain MILD(1-3)/Fever >100.5/FOWLER Aspirin (Aspirin) 325 mg PO QDAY [facility] Last Admin: 11/11/17 10:23 Dose: 325 mg Atorvastatin Calcium (Lipitor) 40 mg PO QHS FAVIAN Bisacodyl (Dulcolax) 10 mg MI QDAY PRN PRN Reason: Constipation unrelieved by MOM Dextrose (D50w (25gm) Syringe) 50 ml IV PRN PRN PRN Reason: Hypoglycemia Hydralazine HCl (Apresoline) 10 mg IV Q4H PRN PRN Reason: Blood Pressure Heparin Sodium/Sodium Chloride (Heparin/ 0.45% Nacl-25,000 Unit/500 Ml) 25,000 unit in 500 mls @ 30 mls/hr IV TITR FAVIAN; 1,500 UNITS/HR PRN Reason: Protocol Last Admin: 11/11/17 08:51 Dose: 1,500 units/hr, 30 mls/hr Insulin Aspart (Novolog) 0 units SUB-Q AC FAVIAN PRN Reason: Protocol Last Admin: 11/11/17 12:48 Dose: 3 units Insulin Aspart (Novolog) 0 units SUB-Q QHS FAVIAN PRN Reason: Protocol Morphine Sulfate (Morphine) 2 mg IV Q4H PRN PRN Reason: Pain, Moderate (4-6) Ondansetron HCl (Zofran) 4 mg IV Q8H PRN PRN Reason: N/V unrelieved by Reglan Potassium Chloride (K-Dur) 20 meq PO ONCE NR Stop: 11/11/17 15:00 Sodium Chloride (Sodium Chloride Flush Syringe 10 Ml) 10 ml IV PRN PRN PRN Reason: LINE FLUSH Last Admin: 11/11/17 05:34 Dose: 10 ml Review of Systems Constitutional: fever, chills, sweats, no weight loss, no weight gain Ears, nose, mouth and throat: no ear pain, no nose pain, no sinus pressure, no sinus pain Cardiovascular: chest pain, shortness of breath, dyspnea on exertion, high blood pressure, decreased exercise tolerance, no orthopnea, no palpitations, no rapid/irregular heart beat, no edema, no syncope, no lightheadedness, no paroxysmal nocturnal dyspnea, no leg edema Respiratory: cough, shortness of breath, dyspnea on exertion, congestion, no cough with sputum, no wheezing, no pain on inspiration Gastrointestinal: no abdominal pain, no nausea, no vomiting, no diarrhea, no constipation, no change in bowel habits Genitourinary Male: no dysuria, no hematuria, no flank pain, no discharge, no urinary frequency, no urinary hesitancy Musculoskeletal: no neck stiffness, no neck pain, no shooting arm pain, no arm numbness/tingling, no low back pain, no shooting leg pain, no leg numbness/ tingling, no redness of joints Integumentary: no rash, no pruritis, no redness, no sores, no wounds Neurological: no head injury Psychiatric: no anxiety Endocrine: no cold intolerance, no heat intolerance Hematologic/Lymphatic: no easy bruising, no easy bleeding, no lymphadenopathy Allergic/Immunologic: no urticaria, no wheezing Physical Examination Vital Signs Temp Pulse Resp BP Pulse Ox 99.4 F 106 H 22 215/152 95 11/11/17 05:36 11/11/17 05:36 11/11/17 05:36 11/11/17 05:36 11/11/17 05:36 General appearance: no acute distress HEENT: Positive: PERRL, Normocephaly, Mucus Membranes Moist Neck: Positive: neck supple, trachea midline Cardiac: Positive: Reg Rate and Rhythm, S1/S2 Lungs: Positive: Decreased Breath Sounds, Rhonchi Neuro: Positive: Grossly Intact, Cranial Nerve 2-12 Intact Abdomen: Positive: Unremarkable, Soft, Active Bowel Sounds. Negative: Tender Skin: Positive: Clear. Negative: Rash, Wound Musculoskeletal: No Fluid Collection, No Pain, Normal Range of Motion Extremities: Absent: edema Results 11/11/17 05:26 11/11/17 05:26 Cardiac Enzymes 11/11/17 Range/Units 05:26 AST 17 (5-40) units/L CK-MB (CK-2) 6.9 H (0.0-4.0) ng/mL Coagulation 11/11/17 Range/Units 08:10 PT 13.7 (12.2-14.9) Sec. INR 1.00 (0.87-1.13) APTT 31.8 (24.2-36.6) Sec. Lipids 11/11/17 Range/Units 05:26 Triglycerides 271 H (2-149) mg/dL Cholesterol 243 H (50-199) mg/dL HDL Cholesterol 43 (40-59) mg/dL Cholesterol/HDL Ratio 5.65 % CBC 11/11/17 Range/Units 05:26 WBC 20.2 H (4.5-11.0) K/mm3 RBC 5.11 H (3.65-5.03) M/mm3 Hgb 15.5 H (11.8-15.2) gm/dl Hct 45.8 H (35.5-45.6) % Plt Count 439 (140-440) K/mm3 Comprehensive Metabolic Panel 11/11/17 Range/Units 05:26 Sodium 142 (137-145) mmol/L Potassium 3.5 L (3.6-5.0) mmol/L Chloride 96.5 L (98-107) mmol/L Carbon Dioxide 27 (22-30) mmol/L BUN 26 H (9-20) mg/dL Creatinine 2.3 H (0.8-1.5) mg/dL Glucose 185 H (75-100) mg/dL Calcium 9.8 (8.4-10.2) mg/dL AST 17 (5-40) units/L ALT 27 (7-56) units/L Alkaline Phosphatase 108 (35-129) units/L Total Protein 7.5 (6.3-8.2) g/dL Albumin 3.9 (3.9-5) g/dL - Imaging and Cardiology Echo: pending EKG: report reviewed, image reviewed EKG interpretations - Telemetry EKG Rhythm: Sinus Tachycardia Chamber hypertrophy or enlargement: left ventricular hypertro Repolarization changes or abnormalities: ST or T wave suggestive of ischemia Assessment and Plan Assessment: PNA Acute PE Hypertensive urgency Acute renal failure Elevated troponins - flat; currently nonspecific in setting of HTN urgency, ARF , PNA, PE. Chest pain, atypical - currently resolved Sinus tachycardia - physiologic Marijuana use - cessation encouraged Plan: Obtain echo. Optimize anti-hypertensive regimen. Obtain BLE duplex. Heparin gtt and IV abx per primary. Consider nephrology and pulmonary consultations per primary. Assessment and plan reviewed with pt at bedside. The patient has been seen in conjunction with Dr. White who agrees with the assessment and plan of care.
[2017-11-11] MEDS ORDERED: NORVASC PO SCH (16:00)
[2017-11-11] MEDS: MORPHINE IV PRN (17:25)
[2017-11-11] MEDS: NORVASC PO SCH (17:25)
[2017-11-11] MEDS: APRESOLINE IV PRN (17:25)
[2017-11-11] MEDS ORDERED: DILAUDID ONE (17:44)
[2017-11-11] MEDS ORDERED: DILAUDID IV ONE (17:45)
[2017-11-11 20:49] LABS: ISTAT Base Excess 1; ISTAT HCO3 25.3; ISTAT PH 7.456 (7.35-7.45); ISTAT PO2 77 (80-105); ISTAT SO2 96; ISTAT TCO2 26
[2017-11-11] MEDS ORDERED: LOPRESSOR ONE (22:35)
[2017-11-11] MEDS ORDERED: NOVOLOG SUB-Q ONE (22:36)
[2017-11-11] MEDS ORDERED: TYLENOL ONE (22:38)
[2017-11-11] MEDS: LOPRESSOR PO SCH (22:41)
[2017-11-12] MEDS: HEPARIN/ 0.45% NACL-25,000 UNIT/500 ML 25,000 UNIT/500 ML BAG IV SCH ×4 (00:48→14:35)
[2017-11-12] MEDS ORDERED: HEPARIN 10,000 UNITS/10 ML IV ONE (05:05)
[2017-11-12] MEDS: MORPHINE IV PRN ×2 (05:15→17:53)
[2017-11-12 05:41] LABS: Chloride 95.6 mmol/L (98-107); Hematocrit 39.6 % (35.5-45.6); Hemoglobin 13.2 gm/dl (11.8-15.2); Mean Corpuscular HGB Conc 33 % (32-34); Mean Corpuscular Hemoglobin 30 pg (28-32); Mean Corpuscular Volume 90 fl (84-94); Platelet Count 445 K/mm3 (140-440); Potassium 3.9 mmol/L (3.6-5.0); Red Blood Count 4.42 M/mm3 (3.65-5.03); Red Cell Distribution Width 14.9 % (13.2-15.2)
[2017-11-12 06:20] LABS: White Blood Count 28.6 K/mm3 (4.5-11.0)
[2017-11-12] MEDS: NOVOLOG SUB-Q SCH ×4 (07:30→22:44)
[2017-11-12] MEDS: DUONEB *Not for PRN Use IH SCH ×3 (07:42→20:44)
--- NOTE | 2017-11-12 08:07 | Vascular Lab Report ---
LOWER EXTREMITY VENOUS DUPLEX: REASON FOR EXAM: Pulmonary embolism. COMMENTS ON THE RIGHT: All veins visualized are freely compressible without evidence of internal echogenicity. Flow is spontaneous and phasic throughout. COMMENTS ON THE LEFT: All veins visualized are freely compressible without evidence of internal echogenicity. Flow is spontaneous and phasic throughout. IMPRESSION: No evidence of acute or chronic deep venous thrombosis in either lower extremity.
[2017-11-12 08:08] LABS: Basophils % (Manual) 0 % (0.0-1.8); Blastocytes % (Manual) 0 %; Diff Status Complete; Eosinophils % (Manual) 0 % (0.0-4.3); Platelet Estimate Consistent w Auto; RBC Morphology Normal
[2017-11-12] MEDS ORDERED: ZITHROMAX 500 MG in NACL 0.9% 250ML 250 ML IV SCH (10:00)
[2017-11-12] MEDS ORDERED: cefTRIAXone 1 GM in NACL 0.9% 20 ML IV SCH (10:00)
[2017-11-12] MEDS: LOPRESSOR PO SCH ×2 (10:50→21:00)
[2017-11-12] MEDS: ASPIRIN PO SCH (10:50)
[2017-11-12] MEDS: NORVASC PO SCH (10:50)
[2017-11-12] MEDS: APRESOLINE IV PRN ×2 (14:38→23:14)
--- NOTE | 2017-11-12 15:06 | Progress Note ---
Assessment and Plan Assessment: PNA Acute respiratory failure Acute PE Dilated CMP - EF 25-30% Hypertensive urgency Acute renal failure - renal indices trending upwards. Elevated troponins - flat; currently nonspecific in setting of HTN urgency, ARF , PNA, PE. Chest pain, atypical - currently resolved Sinus tachycardia - physiologic Marijuana use - cessation encouraged Plan: Echo reviewed - EF 25-30%, mild LVH, LV mild to moderately dilated, LA mildly dilated, mild MR, trace TR, RVSP 32mmHg, no evidence of RV strain. Optimize anti-hypertensive regimen. No ACEI/ARB at this time in setting of renal insufficiency. BLE duplex negative for VTE. Heparin gtt and IV abx per primary. WBCs trending up. Recommend nephrology and pulmonary consultations per primary. Plan for ischemic evaluation for further eval of CMP etiology once medically stabilized. Assessment and plan reviewed with pt at bedside. The patient has been seen in conjunction with Dr. White who agrees with the assessment and plan of care. Subjective Date of service: 11/12/17 Principal diagnosis: PNA; PE; HF Interval history: pt sitting at bedside, on O2 via NRB, states SOB is the same as yesterday. tachypneic. appears anxious and c/o anxiety. ST on tele overnight. BPs remain elevated. Objective Last Vital Signs Temp 97.6 F 11/12/17 07:58 Pulse 114 H 11/12/17 14:38 Resp 34 H 11/12/17 08:00 BP 168/101 11/12/17 14:38 Pulse Ox 91 11/12/17 10:54 - Physical Examination General: Other (tachypneic) HEENT: Positive: PERRL, Normocephaly, Mucus Membranes Moist Neck: Positive: neck supple, trachea midline Cardiac: Positive: Regular Rhythm, S1/S2, Tachycardia Lungs: Positive: Rhonchi, Oxygen Neuro: Positive: Grossly Intact, Cranial Nerve 2-12 Intact Abdomen: Positive: Unremarkable, Soft, Active Bowel Sounds. Negative: Tender Skin: Positive: Clear. Negative: Rash, Wound Musculoskeletal: No Fluid Collection, No Pain, Normal Range of Motion Extremities: Absent: edema - Labs and Meds CBC 11/12/17 Range/Units 04:52 WBC 28.6 H (4.5-11.0) K/mm3 RBC 4.42 (3.65-5.03) M/mm3 Hgb 13.2 (11.8-15.2) gm/dl Hct 39.6 D (35.5-45.6) % Plt Count 445 H (140-440) K/mm3 Comprehensive Metabolic Panel 11/12/17 Range/Units 04:52 Sodium 138 (137-145) mmol/L Potassium 3.9 (3.6-5.0) mmol/L Chloride 95.6 L (98-107) mmol/L Carbon Dioxide 24 (22-30) mmol/L BUN 35 H (9-20) mg/dL Creatinine 2.6 H (0.8-1.5) mg/dL Glucose 143 H (75-100) mg/dL Calcium 9.0 (8.4-10.2) mg/dL - Imaging and Cardiology EKG: report reviewed, image reviewed Echo: report reviewed (EF 25-30%, mild LVH, LV mild to moderately dilated, LA mildly dilated, trace TR, RVSP 32mmHg) - Telemetry EKG Rhythm: Sinus Tachycardia Chamber hypertrophy or enlargement: left ventricular hypertro Repolarization changes or abnormalities: ST or T wave suggestive of ischemia
[2017-11-12] MEDS ORDERED: VANCOMYCIN PHARMACY TO DOSE IV SCH (16:00)
--- NOTE | 2017-11-12 16:51 | Progress Note ---
Assessment and Plan Assessment and plan: Acute hypoxic respiratory failure Bilateral PE Right upper and lower lung pneumonia Sepsis Dilated cardiomyopathy ejection fraction of 25-30% Acute renal failure - Patient is on IV Levaquin and Zosyn - On heparin drip - Cardiology consult appreciated - Pulmonary and nephrology consulted DVT prophylaxis - On therapeutic heparin Disposition - Continue inpatient care History Interval history: Patient was seen and evaluated this morning, chest pain subsided, Patient has SOB. Hospitalist Physical - Physical exam Narrative exam: Not in cardiopulmonary distress. The patient is obese. Vital signs as documented. Head exam is unremarkable. No scleral icterus . Neck is without jugular venous distension, thyromegaly, or carotid bruits. Lungs are clear to auscultation. Cardiac exam reveals regular rate and Rhythm. First and second heart sounds normal. No murmurs, rubs or gallops. Abdominal exam reveals normal bowel sounds, no masses, no organomegaly and no aortic enlargement. Extremities are nonedematous and both femoral and pedal pulses are normal. 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 No focal weakness. - Constitutional Vitals: Temp Pulse Resp BP Pulse Ox 97.6 F 114 H 33 H 168/101 91 11/12/17 07:58 11/12/17 16:25 11/12/17 16:25 11/12/17 14:38 11/12/17 15:51 General appearance: Present: no acute distress Results - Labs CBC & Chem 7: 11/12/17 04:52 11/12/17 04:52 Labs: Laboratory Last Values WBC 28.6 K/mm3 (4.5-11.0) H 11/12/17 04:52 RBC 4.42 M/mm3 (3.65-5.03) 11/12/17 04:52 Hgb 13.2 gm/dl (11.8-15.2) 11/12/17 04:52 Hct 39.6 % (35.5-45.6) D 11/12/17 04:52 MCV 90 fl (84-94) 11/12/17 04:52 MCH 30 pg (28-32) 11/12/17 04:52 MCHC 33 % (32-34) 11/12/17 04:52 RDW 14.9 % (13.2-15.2) 11/12/17 04:52 Plt Count 445 K/mm3 (140-440) H 11/12/17 04:52 Add Manual Diff Complete 11/12/17 04:52 Total Counted 100 11/12/17 04:52 Seg Neuts % (Manual) 90.0 % (40.0-70.0) H 11/12/17 04:52 Band Neutrophils % 0 % 11/12/17 04:52 Lymphocytes % (Manual) 5.0 % (13.4-35.0) L 11/12/17 04:52 Reactive Lymphs % (Man) 0 % 11/12/17 04:52 Monocytes % (Manual) 5.0 % (0.0-7.3) 11/12/17 04:52 Eosinophils % (Manual) 0 % (0.0-4.3) 11/12/17 04:52 Basophils % (Manual) 0 % (0.0-1.8) 11/12/17 04:52 Metamyelocytes % 0 % 11/12/17 04:52 Myelocytes % 0 % 11/12/17 04:52 Promyelocytes % 0 % 11/12/17 04:52 Blast Cells % 0 % 11/12/17 04:52 Nucleated RBC % Not Reportable 11/12/17 04:52 Seg Neutrophils # Man 25.7 K/mm3 (1.8-7.7) H 11/12/17 04:52 Band Neutrophils # 0.0 K/mm3 11/12/17 04:52 Lymphocytes # (Manual) 1.4 K/mm3 (1.2-5.4) 11/12/17 04:52 Abs React Lymphs (Man) 0.0 K/mm3 11/12/17 04:52 Monocytes # (Manual) 1.4 K/mm3 (0.0-0.8) H 11/12/17 04:52 Eosinophils # (Manual) 0.0 K/mm3 (0.0-0.4) 11/12/17 04:52 Basophils # (Manual) 0.0 K/mm3 (0.0-0.1) 11/12/17 04:52 Metamyelocytes # 0.0 K/mm3 11/12/17 04:52 Myelocytes # 0.0 K/mm3 11/12/17 04:52 Promyelocytes # 0.0 K/mm3 11/12/17 04:52 Blast Cells # 0.0 K/mm3 11/12/17 04:52 WBC Morphology Not Reportable 11/12/17 04:52 Hypersegmented Neuts Not Reportable 11/12/17 04:52 Hyposegmented Neuts Not Reportable 11/12/17 04:52 Hypogranular Neuts Not Reportable 11/12/17 04:52 Smudge Cells Not Reportable 11/12/17 04:52 Toxic Granulation Not Reportable 11/12/17 04:52 Toxic Vacuolation Not Reportable 11/12/17 04:52 Dohle Bodies Not Reportable 11/12/17 04:52 Pelger-Huet Anomaly Not Reportable 11/12/17 04:52 Lola Rods Not Reportable 11/12/17 04:52 Platelet Estimate Consistent w auto 11/12/17 04:52 Clumped Platelets Not Reportable 11/12/17 04:52 Plt Clumps, EDTA Not Reportable 11/12/17 04:52 Large Platelets Not Reportable 11/12/17 04:52 Giant Platelets Not Reportable 11/12/17 04:52 Platelet Satelliting Not Reportable 11/12/17 04:52 Plt Morphology Comment Not Reportable 11/12/17 04:52 RBC Morphology Normal 11/12/17 04:52 Dimorphic RBCs Not Reportable 11/12/17 04:52 Polychromasia Not Reportable 11/12/17 04:52 Hypochromasia Not Reportable 11/12/17 04:52 Poikilocytosis Not Reportable 11/12/17 04:52 Anisocytosis Not Reportable 11/12/17 04:52 Microcytosis Not Reportable 11/12/17 04:52 Macrocytosis Not Reportable 11/12/17 04:52 Spherocytes Not Reportable 11/12/17 04:52 Pappenheimer Bodies Not Reportable 11/12/17 04:52 Sickle Cells Not Reportable 11/12/17 04:52 Target Cells Not Reportable 11/12/17 04:52 Tear Drop Cells Not Reportable 11/12/17 04:52 Ovalocytes Not Reportable 11/12/17 04:52 Helmet Cells Not Reportable 11/12/17 04:52 [place] Bodies Not Reportable 11/12/17 04:52 [place] Rings Not Reportable 11/12/17 04:52 Yasmeen Cells Not Reportable 11/12/17 04:52 Bite Cells Not Reportable 11/12/17 04:52 Crenated Cell Not Reportable 11/12/17 04:52 Elliptocytes Not Reportable 11/12/17 04:52 Acanthocytes (Spur) Not Reportable 11/12/17 04:52 Rouleaux Not Reportable 11/12/17 04:52 Hemoglobin C Crystals Not Reportable 11/12/17 04:52 Schistocytes Not Reportable 11/12/17 04:52 Malaria parasites Not Reportable 11/12/17 04:52 Param Bodies Not Reportable 11/12/17 04:52 Hem Pathologist Commnt No 11/12/17 04:52 PT 13.7 Sec. (12.2-14.9) 11/11/17 08:10 INR 1.00 (0.87-1.13) 11/11/17 08:10 APTT 31.8 Sec. (24.2-36.6) 11/11/17 08:10 D-Dimer 886.47 ng/mlDDU (0-234) H 11/11/17 05:26 Heparin Anti-Xa Level 0.15 U.I./ml (0.3-0.7) L 11/12/17 11:17 POC ABG pH 7.456 (7.35-7.45) H 11/11/17 20:39 POC ABG pCO2 36.0 (35-45) 11/11/17 20:39 POC ABG pO2 77 (80-105) L 11/11/17 20:39 POC ABG HCO3 25.3 11/11/17 20:39 POC ABG Total CO2 26 11/11/17 20:39 POC ABG O2 Sat 96 11/11/17 20:39 POC ABG Base Excess 1 11/11/17 20:39 FiO2 100 % 11/11/17 20:39 Sodium 138 mmol/L (137-145) 11/12/17 04:52 Potassium 3.9 mmol/L (3.6-5.0) 11/12/17 04:52 Chloride 95.6 mmol/L (98-107) L 11/12/17 04:52 Carbon Dioxide 24 mmol/L (22-30) 11/12/17 04:52 Anion Gap 22 mmol/L 11/12/17 04:52 BUN 35 mg/dL (9-20) H 11/12/17 04:52 Creatinine 2.6 mg/dL (0.8-1.5) H 11/12/17 04:52 Estimated GFR 33 ml/min 11/12/17 04:52 BUN/Creatinine Ratio 13 % 11/12/17 04:52 Glucose 143 mg/dL (75-100) H 11/12/17 04:52 POC Glucose 262 (70-105) H 11/12/17 11:53 Hemoglobin A1c 6.6 % (4-6) H 11/11/17 09:34 Lactic Acid 1.20 mmol/L (0.7-2.0) 11/11/17 06:26 Calcium 9.0 mg/dL (8.4-10.2) 11/12/17 04:52 Total Bilirubin 0.60 mg/dL (0.1-1.2) 11/11/17 05:26 AST 17 units/L (5-40) 11/11/17 05:26 ALT 27 units/L (7-56) 11/11/17 05:26 Alkaline Phosphatase 108 units/L (35-129) 11/11/17 05:26 Total Creatine Kinase 205 units/L (55-170) H 11/11/17 05:26 CK-MB (CK-2) 6.9 ng/mL (0.0-4.0) H 11/11/17 05:26 CK-MB (CK-2) Rel Index 3.3 (0-4) 11/11/17 05:26 Troponin T 0.047 ng/mL (0.00-0.029) H 11/11/17 18:00 NT-Pro-B Natriuret Pep 16150 pg/mL (0-450) H 11/11/17 05:26 Total Protein 7.5 g/dL (6.3-8.2) 11/11/17 05:26 Albumin 3.9 g/dL (3.9-5) 11/11/17 05:26 Albumin/Globulin Ratio 1.1 % 11/11/17 05:26 Triglycerides 271 mg/dL (2-149) H 11/11/17 05:26 Cholesterol 243 mg/dL (50-199) H 11/11/17 05:26 LDL Cholesterol Direct 146 mg/dL (50-130) H 11/11/17 05:26 HDL Cholesterol 43 mg/dL (40-59) 11/11/17 05:26 Cholesterol/HDL Ratio 5.65 % 11/11/17 05:26 - Imaging and Cardiology Imaging and Cardiology: Bilateral Doppler venous ultrasound negative for DVT
[2017-11-12] MEDS ORDERED: VANCOMYCIN 2,000 MG in NACL 0.9% 500 ML 500 ML IV ONE (18:00)
[2017-11-12] MEDS: ZOSYN/NS 4.5GM/100ML 4.5 GM/100 ML VIAL IV SCH (19:46)
[2017-11-13] MEDS: ZOSYN/NS 4.5GM/100ML 4.5 GM/100 ML VIAL IV SCH ×3 (00:32→12:07)
[2017-11-13] MEDS: MORPHINE IV PRN ×3 (02:34→15:17)
[2017-11-13] MEDS: DUONEB *Not for PRN Use IH SCH ×4 (03:04→19:53)
[2017-11-13 05:21] LABS: Hematocrit 37.6 % (35.5-45.6); Hemoglobin 12.7 gm/dl (11.8-15.2)
[2017-11-13] MEDS: LOPRESSOR PO SCH ×3 (08:02→21:07)
[2017-11-13] MEDS: NOVOLOG SUB-Q SCH ×4 (08:07→22:00)
[2017-11-13] MEDS ORDERED: APRESOLINE PO SCH ×2 (09:00→10:00)
--- NOTE | 2017-11-13 09:31 | Consultation ---
History of Present Illness Consult date: 11/13/17 Reason for consult: chest pain, pneumonia, other (respiratory failure) History of present illness: Called to evaluate case of a 42-year-old -[place] male, admitted 2 days ago with a history of chest pain, pneumonia following a flulike illness. The patient was admitted initially complaining of chest pain, breathing difficulty, nonproductive cough. This following what appeared to be flulike symptoms for the past 1-2 weeks. Reportedly older family members with the flulike symptoms at home. He complains of chest pain but denies any active expectoration, no distal hemoptysis reported. He has prior history of hypertension and dilated cardiomyopathy. No recent travel. No sick animal contacts at home. A presentation in the ER, he was noted to be hypoxic, chest x-ray showing patchy bilateral pneumonia infiltrate. For some reason a d-dimer was performed which was elevated and a ventilation perfusion scan was intermediate for pulmonary embolism. He was admitted to the medical floor and then seen by cardiology. Further evaluation showed an echocardiogram, reportedly with EF 25-30%, mild LVH , LV mild to moderately dilated, LA mildly dilated, mild MR, trace TR, RVSP 32mmHg, no evidence of RV strain. Since yesterday, he had become more distress and hypoxic. Dr. Willett reportedly was called last night and the patient was transferred to the ICU. He is currently on BiPAP on 16/10 cm H2O, FiO2 100. He still able to answer all my questions. He had no smoking and also using THC at home. He denies any additional drug use. He does report history of pneumonia in the past and been previously intubated reportedly due to "medications". No additional family members present at the this time. Past History Past Medical History: diabetes, hypertension Past Surgical History: No surgical history Social history: smoking, other (marijuana use). denies: alcohol abuse Family history: CAD Medications and Allergies Allergies Allergy/AdvReac Type Severity Reaction Status Date / Time No Known Allergies Allergy Verified 11/11/17 06:13 Home Medications Medication Instructions Recorded Confirmed Last Taken Type Aspirin [Adult Low Dose Aspirin EC] 81 mg PO DAILY 11/12/17 11/12/17 Unknown History Hydrochlorothiazide [HCTZ] 25 mg PO QDAY 11/12/17 11/12/17 Unknown History Metoprolol [Lopressor] 25 mg PO DAILY 11/12/17 11/12/17 Unknown History cloNIDine [Catapres] 0.1 mg PO QDAY 11/12/17 11/12/17 Unknown History metFORMIN [Glucophage] 500 mg PO BID 11/12/17 11/12/17 Unknown History Active Meds: Active Medications Acetaminophen (Tylenol) 650 mg PO Q4H PRN PRN Reason: Pain MILD(1-3)/Fever >100.5/FOWLER Last Admin: 11/11/17 22:43 Dose: 650 mg Albuterol/Ipratropium (Duoneb *Not For Prn Use*) 1 ampul IH Q6HRT [facility] Last Admin: 11/13/17 07:32 Dose: 1 ampul Amlodipine Besylate (Norvasc) 10 mg PO QDAY [facility] Last Admin: 11/12/17 10:50 Dose: 10 mg Aspirin (Aspirin) 325 mg PO QDAY [facility] Last Admin: 11/12/17 10:50 Dose: 325 mg Atorvastatin Calcium (Lipitor) 40 mg PO QHS [facility] Last Admin: 11/12/17 20:59 Dose: 40 mg Bisacodyl (Dulcolax) 10 mg ND QDAY PRN PRN Reason: Constipation unrelieved by MOM Dextrose (D50w (25gm) Syringe) 50 ml IV PRN PRN PRN Reason: Hypoglycemia Hydralazine HCl (Apresoline) 10 mg IV Q4H PRN PRN Reason: Blood Pressure Last Admin: 11/12/17 23:14 Dose: 10 mg Hydralazine HCl (Apresoline) 50 mg PO Q8HR [facility] Heparin Sodium/Sodium Chloride (Heparin/ 0.45% Nacl-25,000 Unit/500 Ml) 25,000 unit in 500 mls @ 30 mls/hr IV TITR [facility]; 1,500 UNITS/HR PRN Reason: Protocol Last Titration: 11/13/17 06:52 Dose: Infused Piperacillin Sod/Tazobactam Sod (Zosyn/Ns 4.5gm/100ml) 4.5 gm in 100 mls @ 200 mls/hr IV Q6HR [facility] PRN Reason: Protocol Last Admin: 11/13/17 06:42 Dose: 77.8 mls/hr Vancomycin HCl 1,500 mg/ (Sodium Chloride) 515 mls @ 333.333 mls/hr IV Q24H [facility] Azithromycin 500 mg/ Sodium (Chloride) 250 mls @ 250 mls/hr IV Q24HR [facility] Insulin Aspart (Novolog) 0 units SUB-Q AC [facility] PRN Reason: Protocol Last Admin: 11/13/17 08:07 Dose: Not Given Insulin Aspart (Novolog) 0 units SUB-Q QHS [facility] PRN Reason: Protocol Last Admin: 11/12/17 22:44 Dose: 4 units Metoprolol Tartrate (Lopressor) 100 mg PO BID [facility] Morphine Sulfate (Morphine) 2 mg IV Q4H PRN PRN Reason: Pain, Moderate (4-6) Last Admin: 11/13/17 07:56 Dose: 2 mg Sodium Chloride (Sodium Chloride Flush Syringe 10 Ml) 10 ml IV PRN PRN PRN Reason: LINE FLUSH Last Admin: 11/11/17 05:34 Dose: 10 ml Vancomycin HCl (Vancomycin Pharmacy To Dose) 1 each IV PKCONSULT [facility] PRN Reason: Protocol Review of Systems Constitutional: weight gain Gastrointestinal: no nausea, no vomiting, no diarrhea, no melena, no hematochezia, no loss of appetite Neurological: no head injury, no paralysis, no weakness, no parathesias Hematologic/Lymphatic: no easy bruising, no easy bleeding, no thrombophilia Allergic/Immunologic: no wheezing Physical Examination Vital signs: Vital Signs Temp Pulse Resp BP Pulse Ox 99.4 F 106 H 22 215/152 95 11/11/17 05:36 11/11/17 05:36 11/11/17 05:36 11/11/17 05:36 11/11/17 05:36 General appearance: alert, appears uncomfortable, other (mild distress) Eyes: non-icteric ENT: oropharynx moist Neck: supple, no JVD Ascultation: Bilateral: rales (scattered crackles mostly on the left base ON the right mid field. No wheezing) Percussion: Bilateral: not dull Tactile fremitus: Bilateral: normal Gastrointestinal: normoactive bowel sounds, non-distended Integumentary: other (extensive tattoos) Extremities: no cyanosis, no edema, pink and warm Musculoskeletal: no deformities normal mental status, non-focal exam, pupils equal and round, CN II-XII normal, motor strength normal and mood appropriate Results - Laboratory Findings CBC and BMP: 11/13/17 04:00 11/13/17 12:28 ABG POC ABG pH 7.456 (7.35-7.45) H 11/11/17 20:39 POC ABG pCO2 36.0 (35-45) 11/11/17 20:39 POC ABG pO2 77 (80-105) L 11/11/17 20:39 POC ABG HCO3 25.3 11/11/17 20:39 POC ABG Total CO2 26 11/11/17 20:39 POC ABG O2 Sat 96 11/11/17 20:39 PT/INR, D-dimer PT 13.7 Sec. (12.2-14.9) 11/11/17 08:10 INR 1.00 (0.87-1.13) 11/11/17 08:10 D-Dimer 886.47 ng/mlDDU (0-234) H 11/11/17 05:26 Abnormal lab findings: Abnormal Labs 11/11/17 11/11/17 11/11/17 05:26 05:26 05:26 WBC 20.2 H RBC 5.11 H Hgb 15.5 H Hct 45.8 H Plt Count Seg Neuts % (Manual) 89.0 H Lymphocytes % (Manual) 8.0 L Seg Neutrophils # Man 18.0 H Monocytes # (Manual) D-Dimer 886.47 H Heparin Anti-Xa Level POC ABG pH POC ABG pO2 Potassium 3.5 L Chloride 96.5 L BUN 26 H Creatinine 2.3 H Glucose 185 H POC Glucose Hemoglobin A1c Total Creatine Kinase 205 H CK-MB (CK-2) 6.9 H Troponin T 0.067 H NT-Pro-B Natriuret Pep 13419 H Triglycerides 271 H Cholesterol 243 H LDL Cholesterol Direct 146 H 11/11/17 11/11/17 11/11/17 06:52 08:07 09:34 WBC RBC Hgb Hct Plt Count Seg Neuts % (Manual) Lymphocytes % (Manual) Seg Neutrophils # Man Monocytes # (Manual) D-Dimer Heparin Anti-Xa Level POC ABG pH POC ABG pO2 Potassium Chloride BUN Creatinine Glucose POC Glucose Hemoglobin A1c 6.6 H Total Creatine Kinase CK-MB (CK-2) Troponin T 0.056 H 0.050 H NT-Pro-B Natriuret Pep Triglycerides Cholesterol LDL Cholesterol Direct 11/11/17 11/11/17 11/11/17 12:08 13:34 15:46 WBC RBC Hgb Hct Plt Count Seg Neuts % (Manual) Lymphocytes % (Manual) Seg Neutrophils # Man Monocytes # (Manual) D-Dimer Heparin Anti-Xa Level < 0.10 L POC ABG pH POC ABG pO2 Potassium Chloride BUN Creatinine Glucose POC Glucose 240 H Hemoglobin A1c Total Creatine Kinase CK-MB (CK-2) Troponin T 0.044 H NT-Pro-B Natriuret Pep Triglycerides Cholesterol LDL Cholesterol Direct 11/11/17 11/11/17 11/11/17 18:00 20:39 22:34 WBC RBC Hgb Hct Plt Count Seg Neuts % (Manual) Lymphocytes % (Manual) Seg Neutrophils # Man Monocytes # (Manual) D-Dimer Heparin Anti-Xa Level POC ABG pH 7.456 H POC ABG pO2 77 L Potassium Chloride BUN Creatinine Glucose POC Glucose 206 H Hemoglobin A1c Total Creatine Kinase CK-MB (CK-2) Troponin T 0.047 H NT-Pro-B Natriuret Pep Triglycerides Cholesterol LDL Cholesterol Direct 11/12/17 11/12/17 11/12/17 00:31 01:42 04:52 WBC 28.6 H RBC Hgb Hct Plt Count 445 H Seg Neuts % (Manual) 90.0 H Lymphocytes % (Manual) 5.0 L Seg Neutrophils # Man 25.7 H Monocytes # (Manual) 1.4 H D-Dimer Heparin Anti-Xa Level < 0.10 L POC ABG pH POC ABG pO2 Potassium Chloride BUN Creatinine Glucose POC Glucose 154 H Hemoglobin A1c Total Creatine Kinase CK-MB (CK-2) Troponin T NT-Pro-B Natriuret Pep Triglycerides Cholesterol LDL Cholesterol Direct 11/12/17 11/12/17 11/12/17 04:52 08:03 11:17 WBC RBC Hgb Hct Plt Count Seg Neuts % (Manual) Lymphocytes % (Manual) Seg Neutrophils # Man Monocytes # (Manual) D-Dimer Heparin Anti-Xa Level 0.15 L POC ABG pH POC ABG pO2 Potassium Chloride 95.6 L BUN 35 H Creatinine 2.6 H Glucose 143 H POC Glucose 165 H Hemoglobin A1c Total Creatine Kinase CK-MB (CK-2) Troponin T NT-Pro-B Natriuret Pep Triglycerides Cholesterol LDL Cholesterol Direct 11/12/17 11/12/17 11/12/17 11:53 17:21 18:45 WBC RBC Hgb Hct Plt Count Seg Neuts % (Manual) Lymphocytes % (Manual) Seg Neutrophils # Man Monocytes # (Manual) D-Dimer Heparin Anti-Xa Level 0.13 L POC ABG pH POC ABG pO2 Potassium Chloride BUN Creatinine Glucose POC Glucose 262 H 162 H Hemoglobin A1c Total Creatine Kinase CK-MB (CK-2) Troponin T NT-Pro-B Natriuret Pep Triglycerides Cholesterol LDL Cholesterol Direct 11/12/17 11/13/17 11/13/17 21:13 02:42 03:00 WBC RBC Hgb Hct Plt Count Seg Neuts % (Manual) Lymphocytes % (Manual) Seg Neutrophils # Man Monocytes # (Manual) D-Dimer Heparin Anti-Xa Level 0.14 L POC ABG pH POC ABG pO2 Potassium Chloride BUN Creatinine Glucose POC Glucose 264 H 168 H Hemoglobin A1c Total Creatine Kinase CK-MB (CK-2) Troponin T NT-Pro-B Natriuret Pep Triglycerides Cholesterol LDL Cholesterol Direct - Diagnostic Findings Chest x-ray: report reviewed, image reviewed U/S of Legs: report reviewed Assessment and Plan Acute hypoxemic respiratory failure. Secondary to severe CAP Severe community-acquired pneumonia. Cause to be determined. Consider influenza, secondary bacterial pneumonia Cardiomyopathy with low ejection fraction. Congestive heart failure Still be an aggravating component although I favor acute pneumonia, in view of x-ray findings Diabetes Renal insufficiency, CKD 3 Tobacco, THC abuse Recommendations Will adjust BiPAP to 18/10 cm H2O Continue current FiO2 on titer down as tolerated Discussed with patient the possibility of intubation , mechanical but patient's this point. He is aware, feels more comfortable with current BiPAP, so we'll continue to monitor closely Recommend intubation in case of further respiratory deterioration Continue with Zosyn/vancomycin. Recommended additional cover for Legionella Urine Legionella and strep pneumonia antigens Continue anticoagulation, although the patient Well score appears to be low for PE. Still, this may still be an issue in the setting of H1 N1 Initiate Tamiflu and perform influenza testing ID evaluation When patient stabilized further consider noncontrast CT scan of the chest DVT prophylaxis Findings were discussed with patient in detail. Also with staff. All questions answered. Will continue to monitor patient closely how he performs during the day. Thanks Critical care time was 45 minutes of [id number] fibrillation coordination of care.
--- NOTE | 2017-11-13 09:45 | Progress Note ---
Assessment and Plan Assessment: PNA Acute respiratory failure - on BiPAP Acute PE Dilated CMP - EF 25-30% Hypertensive urgency Acute renal failure - renal indices trending upwards. Elevated troponins - flat; currently nonspecific in setting of HTN urgency, ARF , PNA, PE. Chest pain, atypical - currently resolved Sinus tachycardia - physiologic Marijuana use - cessation encouraged Plan: Optimize anti-hypertensive regimen. No ACEI/ARB at this time in setting of renal insufficiency. BLE duplex negative for VTE. Heparin gtt and IV abx per primary. Await nephrology and pulmonary consultations. Plan for ischemic evaluation for further eval of CMP etiology once medically stabilized. Assessment and plan reviewed with pt at bedside. The patient has been seen in conjunction with Dr. White who agrees with the assessment and plan of care. Subjective Date of service: 11/13/17 Principal diagnosis: PNA; PE; HF Interval history: pt sitting at bedside, on BiPAP at 100% FiO2. Pt was tx to ICU overnight due to respiratory decompensation. In SR/ST on tele, BPs remain elevated. Objective Last Vital Signs Temp 99.1 F 11/13/17 08:00 Pulse 112 H 11/13/17 08:02 Resp 44 H 11/13/17 08:00 BP 162/96 11/13/17 08:02 Pulse Ox 95 11/13/17 08:00 - Physical Examination General: Other (tachypneic) HEENT: Positive: PERRL, Normocephaly, Mucus Membranes Moist Neck: Positive: neck supple, trachea midline Cardiac: Positive: Reg Rate and Rhythm, S1/S2 Lungs: Positive: Decreased Breath Sounds, Rhonchi, Oxygen Neuro: Positive: Grossly Intact, Cranial Nerve 2-12 Intact Abdomen: Positive: Unremarkable, Soft, Active Bowel Sounds. Negative: Tender Skin: Positive: Clear. Negative: Rash, Wound Musculoskeletal: No Fluid Collection, No Pain, Normal Range of Motion Extremities: Absent: edema - Labs and Meds CBC 11/13/17 Range/Units 04:00 Hgb 12.7 (11.8-15.2) gm/dl Hct 37.6 (35.5-45.6) % Plt Count 369 (140-440) K/mm3 - Imaging and Cardiology EKG: report reviewed, image reviewed Echo: report reviewed (EF 25-30%, mild LVH, LV mild to moderately dilated, LA mildly dilated, trace TR, RVSP 32mmHg) Chamber hypertrophy or enlargement: left ventricular hypertro Repolarization changes or abnormalities: ST or T wave suggestive of ischemia
--- NOTE | 2017-11-13 09:47 | Consultation ---
History of Present Illness - History of Present Illness Source of information: History of presenting illness Patient is a 42-year-old -[place] male who has been brought in here with complaints of ongoing chest pain and shortness of breath of 1 day duration. Patient does have history of hypertension but apparently has not been taking his medication for last 3 weeks. Prior to this. He has had flulike symptoms and fatigue that was ongoing for 2 weeks during which his appetite was very poor. Patient is currently on BiPAP and ICU due to hypoxemia and respiratory failure. He does have multiple tattoos all over his body. He does not follow up with physicians on a regular basis. Denies using any form of nonsteroidal medication. Blood pressure has been usually high, patient denies having any history of nasal bleed, skin rash, difficulty voiding, dysuria , burning, frequency or urgency of urination. Upon arrival he was noted to have accelerated hypertension with potassium at 3.5, creatinine 2.3 and BUN of 26. He has also been seen by cardiology and pulmonary service and currently has been diagnosed with dilated cardiomyopathy with ejection fraction of 25-30%, sinus tachycardia, which is felt to be physiologic. He also has been diagnosed with pulmonary embolism,(based on high probably on VQ scan) currently being treated for community-acquired pneumonia pending. Influenza verification currently pending. He has been started on antibiotic and is currently also being followed by infectious disease Patient has also been using marijuana Past medical history is significant for hypertension diabetes mellitus type 2 Poor lifestyle, eating habit Noncompliance Family history: noncontributory for related disorde Social history: marijuana use, multiple sexual encounters Allergies: no known drug allergies Medications: Reviewed from the chart Review of system is positive for shortness of breath, fatigue, chest pain All other review of system negative Physical examination Vitals: Reviewed General: Patient is wearing BiPAP appears to be in moderate respiratory distress HEENT: Oral mucosa mildly dry. No pharyngeal erythema, no icterus,moderate respiratory distress, cur Neck: Supple, no JVD, thyromegaly, nodule or mass Chest:patient has bilateral scattered wheezes Heart: Regular rate and rhythm, S1, S2 heard, no S3, S4 Abdomen: Soft, nontender, bowel sounds present. No suprapubic mass. No CVA tenderness. No renal bruit Extremities: No petechial rash, dry skin, 1+ edema, no peripheral cyanosis Neurological: Alert, awake, follows commands. No asterixis Dermatology; no petechial skin rash, dry skin, poor skin hygiene,multiple tattoos all over Back: Nontender thoracolumbar spine Psychiatric: No agitation, aggression noted Assessment and plan Renal failure in a patient who is 42-year-old with some risk factors for chronic kidney disease, currently renal function appears to be worsening at this time 2.6 2.3 upon admission, it is quite likely that he has developed acute tubular necrosis due to severe hypoxemia respiratory failure and he also may have underlying chronic kidney disease for which workup will be ordered and followed through With recent the history of hypoxemia respiratory illness he will be at risk for acute tubular necrosis Patient has had flulike symptoms at home chest x-ray showed evidence of bilateral pneumonia Underlying congestive heart failure ejection fraction approximately 25-30% dilated cardiomyopathy Diabetes mellitus type 2 hemoglobin A1c currently 6.6 Admitted here with chest pain and shortness of breath of 1 day duration Tachycardia with tachypnea, Hypertension accelerated: Uncontrolled in a patient who is not very compliant and has not been taking medication for nearly 3 weeks Hypokalemia with uncontrolled hypertension worrisome for secondary hypertension we'll check renin as well as plasma aldosterone Significant leukocytosis/ elevated hemoglobin? Due to dehydration; currently improving Prognosis remains very poor at this time to monitor and follow, mortality risk could be high in his case given the degree and severity of respiratory failure he has with evolving renal failure and underlying cardiomyopathy, and very poor compliance Patient was counseled and educated regarding renal failure as well as multiple other comorbidities that he has Continue with supportive care We'll continue to follow and make recommendation from renal standpoint Past History Past Medical History: diabetes, hypertension Past Surgical History: No surgical history Social history: smoking, other (marijuana use). denies: alcohol abuse Family history: CAD Medications and Allergies Allergies Allergy/AdvReac Type Severity Reaction Status Date / Time No Known Allergies Allergy Verified 11/11/17 06:13 Home Medications Medication Instructions Recorded Confirmed Last Taken Type Aspirin [Adult Low Dose Aspirin EC] 81 mg PO DAILY 11/12/17 11/12/17 Unknown History Hydrochlorothiazide [HCTZ] 25 mg PO QDAY 11/12/17 11/12/17 Unknown History Metoprolol [Lopressor] 25 mg PO DAILY 11/12/17 11/12/17 Unknown History cloNIDine [Catapres] 0.1 mg PO QDAY 11/12/17 11/12/17 Unknown History metFORMIN [Glucophage] 500 mg PO BID 11/12/17 11/12/17 Unknown History Active Meds: Active Medications Acetaminophen (Tylenol) 650 mg PO Q4H PRN PRN Reason: Pain MILD(1-3)/Fever >100.5/FOWLER Last Admin: 11/11/17 22:43 Dose: 650 mg Albuterol/Ipratropium (Duoneb *Not For Prn Use*) 1 ampul IH Q6HRT [facility] Last Admin: 11/13/17 07:32 Dose: 1 ampul Amlodipine Besylate (Norvasc) 10 mg PO QDAY [facility] Last Admin: 11/12/17 10:50 Dose: 10 mg Aspirin (Aspirin) 325 mg PO QDAY [facility] Last Admin: 11/12/17 10:50 Dose: 325 mg Atorvastatin Calcium (Lipitor) 40 mg PO QHS [facility] Last Admin: 11/12/17 20:59 Dose: 40 mg Bisacodyl (Dulcolax) 10 mg NV QDAY PRN PRN Reason: Constipation unrelieved by MOM Dextrose (D50w (25gm) Syringe) 50 ml IV PRN PRN PRN Reason: Hypoglycemia Hydralazine HCl (Apresoline) 10 mg IV Q4H PRN PRN Reason: Blood Pressure Last Admin: 11/12/17 23:14 Dose: 10 mg Heparin Sodium/Sodium Chloride (Heparin/ 0.45% Nacl-25,000 Unit/500 Ml) 25,000 unit in 500 mls @ 30 mls/hr IV TITR [facility]; 1,500 UNITS/HR PRN Reason: Protocol Last Titration: 11/13/17 06:52 Dose: Infused Piperacillin Sod/Tazobactam Sod (Zosyn/Ns 4.5gm/100ml) 4.5 gm in 100 mls @ 200 mls/hr IV Q6HR [facility] PRN Reason: Protocol Last Admin: 11/13/17 06:42 Dose: 77.8 mls/hr Vancomycin HCl 1,500 mg/ (Sodium Chloride) 515 mls @ 333.333 mls/hr IV Q24H [facility] Azithromycin 500 mg/ Sodium (Chloride) 250 mls @ 250 mls/hr IV Q24HR [facility] Insulin Aspart (Novolog) 0 units SUB-Q AC [facility] PRN Reason: Protocol Last Admin: 11/13/17 08:07 Dose: Not Given Insulin Aspart (Novolog) 0 units SUB-Q QHS [facility] PRN Reason: Protocol Last Admin: 11/12/17 22:44 Dose: 4 units Metoprolol Tartrate (Lopressor) 50 mg PO TID [facility] Morphine Sulfate (Morphine) 2 mg IV Q4H PRN PRN Reason: Pain, Moderate (4-6) Last Admin: 11/13/17 07:56 Dose: 2 mg Sodium Chloride (Sodium Chloride Flush Syringe 10 Ml) 10 ml IV PRN PRN PRN Reason: LINE FLUSH Last Admin: 11/11/17 05:34 Dose: 10 ml Vancomycin HCl (Vancomycin Pharmacy To Dose) 1 each IV PKCONSULT [facility] PRN Reason: Protocol Exam - Vital Signs Vital signs: Vital Signs Temp Pulse Resp BP Pulse Ox 99.4 F 106 H 22 215/152 95 11/11/17 05:36 11/11/17 05:36 11/11/17 05:36 11/11/17 05:36 11/11/17 05:36 Results - Lab Results 11/14/17 02:50 11/14/17 02:50 Most recent lab results Calcium 9.0 mg/dL (8.4-10.2) 11/12/17 04:52
[2017-11-13] MEDS: ASPIRIN PO SCH (09:55)
[2017-11-13] MEDS: NORVASC PO SCH (09:55)
[2017-11-13] MEDS ORDERED: ZITHROMAX 500 MG in NACL 0.9% 250ML 250 ML IV SCH (10:00)
[2017-11-13] MEDS ORDERED: CARDURA PO SCH (11:00)
[2017-11-13] MEDS: HEPARIN/ 0.45% NACL-25,000 UNIT/500 ML 25,000 UNIT/500 ML BAG IV SCH (12:01)
[2017-11-13 13:07] LABS: Chloride 95.7 mmol/L (98-107); Potassium 3.6 mmol/L (3.6-5.0)
--- NOTE | 2017-11-13 13:59 | Consultation ---
History of Present Illness - Reason for Consult Consult date: 11/13/17 bilateral pneumonia Requesting physician: CHARLIE SMITH - History of Present Illness 42 years old male with history of hypertension and diabetes mellitus, admitted on 11/11/2017 due to a week history of progressive shortness of breath and dry cough. Patient reports that many of his family members have been fighting a bad cold. Reporst a subjective Fever However He Did Not Check His Temperature. He Also Noticed Some Chest Pain Which Was Sharp Nonradiating during an argument. Her has been Sexually Active with Female Only and Uses Condoms Consistently. He Has Had 5 Sexual Partners Last 12 Months. No Recent Travels In the emergency room, initial temperature was 99.4, HR 106, respirations 22, blood pressure 215/152. White count 20,000. Hemoglobin 15.5. Platelets 439. Creatinine 2.3. CXR showed right lower consolidation, patchy right upper air space disease. VQ scan shows intermediate to high prob for PE. Legs US no DVT. Microbiology: Blood cultures: 11/11 ngtd Influenza: neg Current Antimicrobials: azitho zosyn vanco Previous Antimicrobials: Past History Past Medical History: diabetes, hypertension Past Surgical History: No surgical history Social history: smoking, other (marijuana use). denies: alcohol abuse Family history: CAD Medications and Allergies Allergies Allergy/AdvReac Type Severity Reaction Status Date / Time No Known Allergies Allergy Verified 11/11/17 06:13 Home Medications Medication Instructions Recorded Confirmed Last Taken Type Aspirin [Adult Low Dose Aspirin EC] 81 mg PO DAILY 11/12/17 11/12/17 Unknown History Hydrochlorothiazide [HCTZ] 25 mg PO QDAY 11/12/17 11/12/17 Unknown History Metoprolol [Lopressor] 25 mg PO DAILY 11/12/17 11/12/17 Unknown History cloNIDine [Catapres] 0.1 mg PO QDAY 11/12/17 11/12/17 Unknown History metFORMIN [Glucophage] 500 mg PO BID 11/12/17 11/12/17 Unknown History Active Meds: Active Medications Acetaminophen (Tylenol) 650 mg PO Q4H PRN PRN Reason: Pain MILD(1-3)/Fever >100.5/FOWLER Last Admin: 11/11/17 22:43 Dose: 650 mg Albuterol/Ipratropium (Duoneb *Not For Prn Use*) 1 ampul IH Q6HRT [facility] Last Admin: 11/13/17 07:32 Dose: 1 ampul Amlodipine Besylate (Norvasc) 10 mg PO QDAY [facility] Last Admin: 11/13/17 09:55 Dose: 10 mg Aspirin (Aspirin) 325 mg PO QDAY [facility] Last Admin: 11/13/17 09:55 Dose: 325 mg Atorvastatin Calcium (Lipitor) 40 mg PO QHS [facility] Last Admin: 11/12/17 20:59 Dose: 40 mg Bisacodyl (Dulcolax) 10 mg MA QDAY PRN PRN Reason: Constipation unrelieved by MOM Dextrose (D50w (25gm) Syringe) 50 ml IV PRN PRN PRN Reason: Hypoglycemia Doxazosin Mesylate (Cardura) 2 mg PO QDAY [facility] Last Admin: 11/13/17 12:00 Dose: 2 mg Hydralazine HCl (Apresoline) 10 mg IV Q4H PRN PRN Reason: Blood Pressure Last Admin: 11/12/17 23:14 Dose: 10 mg Heparin Sodium/Sodium Chloride (Heparin/ 0.45% Nacl-25,000 Unit/500 Ml) 25,000 unit in 500 mls @ 30 mls/hr IV TITR FAVIAN; 1,500 UNITS/HR PRN Reason: Protocol Last Admin: 11/13/17 12:01 Dose: 2,400 units/hr, 48 mls/hr Azithromycin 500 mg/ Sodium (Chloride) 250 mls @ 250 mls/hr IV Q24HR [facility] Piperacillin Sod/Tazobactam Sod (Zosyn/Ns 2.25 Gm/50ml) 2.25 gm in 50 mls @ 100 mls/hr IV Q6HR [facility] Insulin Aspart (Novolog) 0 units SUB-Q AC [facility] PRN Reason: Protocol Last Admin: 11/13/17 12:19 Dose: Not Given Insulin Aspart (Novolog) 0 units SUB-Q QHS [facility] PRN Reason: Protocol Last Admin: 11/12/17 22:44 Dose: 4 units Metoprolol Tartrate (Lopressor) 50 mg PO TID [facility] Morphine Sulfate (Morphine) 2 mg IV Q4H PRN PRN Reason: Pain, Moderate (4-6) Last Admin: 11/13/17 07:56 Dose: 2 mg Sodium Chloride (Sodium Chloride Flush Syringe 10 Ml) 10 ml IV PRN PRN PRN Reason: LINE FLUSH Last Admin: 11/11/17 05:34 Dose: 10 ml Vancomycin HCl (Vancomycin Pharmacy To Dose) 1 each IV PKCONSULT FAVIAN PRN Reason: Protocol Review of Systems ROS unobtainable: due to mental status All systems: negative (as per HPI) Physical Examination - Physical Exam Narrative exam: General appearance: Alert in mod resp distress Eyes: anicteric sclerae, moist conjunctivae; no lid-lag; PERRLA HENT: Atraumatic; oropharynx clear Neck: Trachea midline; supple, no thyromegaly or lymphadenopathy Lungs: +lou crackles CV: RRR Abdomen: Soft, non-tender; no masses or hepatosplenomegaly Extremities: No peripheral edema or extremity lymphadenopathy Skin: +multiple tattoes Psych: Appropriate affect, alert and oriented to person, place and time. Neuro: alert and oriented x 3. Moving all extermities Lines: No CVL / PICC - Constitutional Vitals: Vital Signs Temp Pulse Resp BP Pulse Ox 99.1 F 101 H 31 H 149/88 93 11/13/17 08:00 11/13/17 12:20 11/13/17 12:20 11/13/17 12:20 11/13/17 12:20 Temperature -Last 24 Hours Temperature 99.1 F Temperature 98.9 F Temperature 98.6 F Results - Labs CBC & Chem 7: 11/13/17 04:00 11/13/17 12:28 Labs: Abnormal lab results 11/12/17 11/12/17 11/12/17 Range/Units 08:03 11:53 17:21 Heparin Anti-Xa Level (0.3-0.7) U.I./ml Chloride (98-107) mmol/L BUN (9-20) mg/dL Creatinine (0.8-1.5) mg/dL Glucose (75-100) mg/dL POC Glucose 165 H 262 H 162 H (70-105) 11/12/17 11/12/17 11/13/17 Range/Units 18:45 21:13 02:42 Heparin Anti-Xa Level 0.13 L (0.3-0.7) U.I./ml Chloride (98-107) mmol/L BUN (9-20) mg/dL Creatinine (0.8-1.5) mg/dL Glucose (75-100) mg/dL POC Glucose 264 H 168 H (70-105) 11/13/17 11/13/17 11/13/17 Range/Units 03:00 12:28 12:28 Heparin Anti-Xa Level 0.14 L 0.14 L (0.3-0.7) U.I./ml Chloride 95.7 L (98-107) mmol/L BUN 49 H (9-20) mg/dL Creatinine 3.0 H (0.8-1.5) mg/dL Glucose 198 H (75-100) mg/dL POC Glucose (70-105) Assessment and Plan Assessment: 1) Sepsis: Present on admission, manifested by low grade fever, tachycardia, leukocytosis, increased lactate. Etiology most likely pneumonia. 2) Bilateral pneumonia: ? unclear etiology DDx CAP, PJP, atypical. CXR showed right lower consolidation, patchy right upper air space disease. VQ scan shows intermediate to high prob for PE. Legs US no DVT. 3) Marijuana abuse 4) High risk sexual encounters 5) Respiratory failure Plan: -follow-up blood cultures -obtain respiratory cultures, procalcitonin, C-reactive protein (CRP) -check Legionella urine antigen, Streptococcus pneumoniae urine antigen, Mycoplasma serology, Chlamydia pneumophila serology -check INA with reflex, C3, C4, ANCA, PASTORA level -check HIV test -continue azithromycin and vanco -stop zosyn -start ceftriaxone -close monitoring -if HIV positive will start IV bactrim and IV solumedrol Thank you Dr Nevarez for your consultation, will follow up with you. Jessica Carlson MD Infectious Diseases Specialist [facility] ([facility] M [phone] O [phone]
[2017-11-13] MEDS ORDERED: cefTRIAXone 2 GM in NACL 0.9% 20 ML IV SCH (14:30)
[2017-11-13] MEDS ORDERED: ROCEPHIN/NS 2 GM/100 ML 2 GM/100 ML BAG IV SCH (15:00)
[2017-11-13] MEDS ORDERED: VANCOMYCIN PHARMACY TO DOSE IV SCH (15:00)
[2017-11-13 17:32] LABS: HIV-1 Antigen p24 Non React (Non React); HIVR-1/2 Ab Non React (Non React)
[2017-11-13] MEDS ORDERED: ZOSYN/NS 2.25 GM/50ML 2.25 GM/50 ML BAG IV SCH (18:00)
[2017-11-13 19:10] LABS: Bilirubin,Urine NEG (Negative); Blood,Urine SM (Negative); Ketones,Urine NEG (Negative); Leukocyte Esterase,Urine NEG (Negative); Nitrite,Urine NEG (Negative); Urobilinogen,Urine < 2.0 mg/dL (<2.0)
[2017-11-13] MEDS ORDERED: VANCOMYCIN 1,500 MG in NACL 0.9% 500 ML 500 ML IV SCH (20:30)
[2017-11-13] MEDS ORDERED: LOPRESSOR PO SCH (22:00)
[2017-11-13] MEDS ORDERED: HEPARIN 10,000 UNITS/10 ML IV ONE (22:15)
[2017-11-14] MEDS ORDERED: ARTIFICIAL TEARS OPHTH OINT OU PRN (00:29)
[2017-11-14] MEDS ORDERED: VASELINE LIP THERAPY TP PRN ×2 (00:29→00:46)
[2017-11-14] MEDS ORDERED: VERSED IV ONE (00:30)
[2017-11-14] MEDS ORDERED: AMIDATE IV ONE ×2 (00:30→00:36)
[2017-11-14] MEDS ORDERED: NACL 0.9% 500 ML ONE (00:30)
[2017-11-14] MEDS ORDERED: QUELICIN ONE (00:30)
[2017-11-14] MEDS ORDERED: D5W IV ONE (00:30)
--- NOTE | 2017-11-14 00:35 | Event Note ---
Date: 11/14/17 Called by ICU nurse for assistance with intubation. Patient in resp distress on bipap and Dr Mcconnell (pulmonary) requests intubation. On arrival to room patient was sitting up in bed with bipap in place and SpO2 was in low 80s. He was awake and alert prior to intubation. Versed 5mg Iv, Etomidate 20mg IV and Succinylcholine 150mg IV given for sedation. Patient ventilated with ambubag with oral airway in place however could not achieve sat greater that 80%. At this point I went ahead and intubated as I felt sat would not improve from there without a tube in place. Direct laryngoscopy achieved with Mac 4 blade and 8.0 ETT passed through cords. Patient tolerated procedure well. Handed off to RT for securing.
[2017-11-14] MEDS ORDERED: QUELICIN IV ONE (00:36)
[2017-11-14] MEDS ORDERED: fentaNYL DRIP Premix 2,000 MCG/100 ML BAG IV SCH (01:00)
[2017-11-14] MEDS ORDERED: MIDAZOLAM 100 MG in NACL 0.9% 80 ML IV SCH (01:00)
[2017-11-14] MEDS ORDERED: NACL 0.9% 500 ML IV SCH (01:00)
[2017-11-14] MEDS ORDERED: VERSED IV NR (01:00)
[2017-11-14] MEDS ORDERED: ADRENALIN ONE (01:10)
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
[2017-11-14] MEDS ORDERED: LEVOPHED DRIP 4 MG/NS 250 ML 4 MG/250 ML BAG IV ONE (01:24)
--- NOTE | 2017-11-14 02:24 | Event Note ---
Date: 11/14/17 Code blue called Patient self extubated himself, he was re-intubated by ER physician He lost his pulse, ACLS protocol initiated pulse was regained but lost 4x He was hypotensive, given IV fluid, started on levophed and dopamine repeat labs, refer to code sheet for details Patient coded again, ROSC was obtained Start bicarb drip refer to code sheet for details Code blue time of 605 Family at bedside
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
[2017-11-14 03:31] LABS: Hematocrit 30.5 % (35.5-45.6); Hemoglobin 9.5 gm/dl (11.8-15.2); Mean Corpuscular HGB Conc 31 % (32-34); Mean Corpuscular Hemoglobin 29 pg (28-32); Mean Corpuscular Volume 93 fl (84-94); Platelet Count 352 K/mm3 (140-440); Red Blood Count 3.27 M/mm3 (3.65-5.03); Red Cell Distribution Width 15.2 % (13.2-15.2)
[2017-11-14 03:32] LABS: White Blood Count 26.2 K/mm3 (4.5-11.0)
[2017-11-14] MEDS ORDERED: SODIUM BICARBONATE IV ONE ×2 (03:39)
[2017-11-14 03:41] LABS: Creatine Kinase MB 11.9 ng/mL (0.0-4.0)
[2017-11-14 03:43] LABS: Albumin 2.2 g/dL (3.9-5); Albumin/Globulin Ratio 0.6 %; Bilirubin,Total 0.5 mg/dL (0.1-1.2); Chloride 97.5 mmol/L (98-107); Total Protein 5.6 g/dL (6.3-8.2)
[2017-11-14 03:43] LABS: ISTAT Base Excess -17; ISTAT HCO3 12.6; ISTAT PCO2 38.4 (35-45); ISTAT PH 7.123 (7.35-7.45); ISTAT PO2 90 (80-105); ISTAT SO2 93; ISTAT TCO2 14
[2017-11-14 03:53] LABS: Potassium 4.4 mmol/L (3.6-5.0)
[2017-11-14] MEDS ORDERED: INTROPIN DRIP 800 MG/D5W 250 ML 800 MG/250 ML BAG IV SCH (04:00)
[2017-11-14] MEDS ORDERED: LEVOPHED DRIP 4 MG/NS 250 ML 4 MG/250 ML BAG IV SCH (04:00)
[2017-11-14 04:16] LABS: Acanthocytes Rare; Anisocytosis 1+; Basophils % (Manual) 0 % (0.0-1.8); Blastocytes % (Manual) 0 %; Burr Cells Few; Eosinophils % (Manual) 0 % (0.0-4.3)
[2017-11-14 04:17] LABS: Diff Status Complete; Helmet Cells Few; Ovalocytes 1+; Tear Drop Cells Rare
--- NOTE | 2017-11-14 04:41 | Event Note ---
Date: 11/14/17 D/w nurse on 11/13/17 at 11:53pm re: worsening work of breathing, tachypnea, and inability to get sats up higher that low 80's on BIPAP 100% FiO2. Asked anesthesia to intubate patient, see note. Versed and Fentanyl drips ordered for sedation by phone at 12:37am. Received another page at 3:07am which was called back at 3:27am. ABG was read showing severe metabolic acidosis and hypoxia on ACVC 24/500/100%/+10. Ordered 4 amps of bicarb IV push. Per discussions with nurse during this phone call, after anesthesia left the bedside patient "yanked his head" quickly to one side causing ET tube dislodgement. Patient was coded and re-intubated by ED physician. Now on multiple pressors. Chart reviewed including labs/CXR. CXR shows good positioning of ET tube with severe bilateral infiltrates, likely ARDS, and no PTX. Patient already on multiple ABX and heparin drip. Prognosis appears guarded to poor.
[2017-11-14] MEDS ORDERED: SODIUM BICARBONATE 150 MEQ in D5W 1,000 ML IV SCH (05:00)
[2017-11-14 06:03] VITALS: BP 61/28
--- NOTE | 2017-11-14 07:13 | Progress Note ---
Assessment and Plan Assessment and plan: Patient is a 42 year old male admitted with shortness of breath and chest pain noted to have pneumonia transferred to the ICU due to worsening respiratory distress. Acute hypoxic respiratory failure * Continue BIPAP, Pulmonary following. Patient sitting up and asking about food without increased respiratory stress. Continue Nebulizer Bilateral PE * Continue Heparin drip Right upper and lower lung pneumonia * ID Consulted, continue abx. Sepsis * POA, Lactatic acid 1.2, although with elevated WBC. continue abx. patient is afebrile. cultures are negative at this time. Dilated cardiomyopathy ejection fraction of 25-30% * Cardiology following. Acute renal failure * Creatnine worsening, Neprology following Diabetes Mellitus * Continue insulin Tobacco/THC abuse * Counselling provided. Patient verbalized understading DVT prophylaxis - On therapeutic heparin Disposition The high probability of a clinically significant, sudden or life threatening deterioration of the [PULMONARY, cardiac, renal] system(s) required my full and direct attention, intervention and personal management. The aggregate critical care time was [35] minutes. This time is in addition to time spent performing reported procedures but includes the following: [x] Data Review and interpretation [x] Patient assessment and monitoring of vital signs [x] Documentation [x] Medication orders and management History Interval history: patient seen and examined this morning, sitting up, remains on full BIPAP support, but vocal and asking to eat. I advised him this should be only after we are able to get him off the BIPAP Hospitalist Physical - Constitutional Vitals: Temp Pulse Resp BP Pulse Ox 97.9 F 32 L 24 61/28 99 11/14/17 03:08 11/14/17 05:51 11/14/17 05:51 11/14/17 05:51 11/14/17 05:31 General appearance: Present: mild distress - EENT Eyes: Present: PERRL, EOM intact ENT: hearing intact, clear oral mucosa - Neck Neck: Present: supple, normal ROM - Respiratory Respiratory effort: other (no accessory muscle use but still on BIPAP) Respiratory: bilateral: wheezing (BILATERALLY) - Cardiovascular Heart Sounds: Present: S1 & S2 (tachycardia) - Extremities Extremities: no ischemia, pulses intact, pulses symmetrical, No edema Extremity abnormal: edema Peripheral Pulses: within normal limits - Abdominal General gastrointestinal: soft, non-tender, non-distended, normal bowel sounds - Integumentary Integumentary: Present: warm (multiple skin tattoes covering his whole body), dry - Psychiatric Psychiatric: appropriate mood/affect - Neurologic Neurologic: CNII-XII intact, moves all extremities - Allied Health Allied health notes reviewed: nursing Results - Labs CBC & Chem 7: 11/14/17 02:50 11/14/17 02:50 Labs: Laboratory Last Values WBC 26.2 K/mm3 (4.5-11.0) H 11/14/17 02:50 RBC 3.27 M/mm3 (3.65-5.03) L 11/14/17 02:50 Hgb 9.5 gm/dl (11.8-15.2) L D 11/14/17 02:50 Hct 30.5 % (35.5-45.6) L D 11/14/17 02:50 MCV 93 fl (84-94) 11/14/17 02:50 MCH 29 pg (28-32) 11/14/17 02:50 MCHC 31 % (32-34) L 11/14/17 02:50 RDW 15.2 % (13.2-15.2) 11/14/17 02:50 Plt Count 352 K/mm3 (140-440) 11/14/17 02:50 Add Manual Diff Complete 11/14/17 02:50 Total Counted 100 11/14/17 02:50 Seg Neutrophils % Instructional Material Director 11/14/17 02:50 Seg Neuts % (Manual) 92.0 % (40.0-70.0) H 11/14/17 02:50 Band Neutrophils % 0 % 11/14/17 02:50 Lymphocytes % (Manual) 5.0 % (13.4-35.0) L 11/14/17 02:50 Reactive Lymphs % (Man) 0 % 11/14/17 02:50 Monocytes % (Manual) 2.0 % (0.0-7.3) 11/14/17 02:50 Eosinophils % (Manual) 0 % (0.0-4.3) 11/14/17 02:50 Basophils % (Manual) 0 % (0.0-1.8) 11/14/17 02:50 Metamyelocytes % 1.0 % 11/14/17 02:50 Myelocytes % 0 % 11/14/17 02:50 Promyelocytes % 0 % 11/14/17 02:50 Blast Cells % 0 % 11/14/17 02:50 Nucleated RBC % Not Reportable 11/14/17 02:50 Seg Neutrophils # Man 24.1 K/mm3 (1.8-7.7) H 11/14/17 02:50 Band Neutrophils # 0.0 K/mm3 11/14/17 02:50 Lymphocytes # (Manual) 1.3 K/mm3 (1.2-5.4) 11/14/17 02:50 Abs React Lymphs (Man) 0.0 K/mm3 11/14/17 02:50 Monocytes # (Manual) 0.5 K/mm3 (0.0-0.8) 11/14/17 02:50 Eosinophils # (Manual) 0.0 K/mm3 (0.0-0.4) 11/14/17 02:50 Basophils # (Manual) 0.0 K/mm3 (0.0-0.1) 11/14/17 02:50 Metamyelocytes # 0.3 K/mm3 11/14/17 02:50 Myelocytes # 0.0 K/mm3 11/14/17 02:50 Promyelocytes # 0.0 K/mm3 11/14/17 02:50 Blast Cells # 0.0 K/mm3 11/14/17 02:50 WBC Morphology Not Reportable 11/14/17 02:50 Hypersegmented Neuts Not Reportable 11/14/17 02:50 Hyposegmented Neuts Not Reportable 11/14/17 02:50 Hypogranular Neuts Not Reportable 11/14/17 02:50 Smudge Cells Not Reportable 11/14/17 02:50 Toxic Granulation Not Reportable 11/14/17 02:50 Toxic Vacuolation Not Reportable 11/14/17 02:50 Dohle Bodies Not Reportable 11/14/17 02:50 Pelger-Huet Anomaly Not Reportable 11/14/17 02:50 Lola Rods Not Reportable 11/14/17 02:50 Platelet Estimate Appears normal 11/14/17 02:50 Clumped Platelets Not Reportable 11/14/17 02:50 Plt Clumps, EDTA Not Reportable 11/14/17 02:50 Large Platelets Not Reportable 11/14/17 02:50 Giant Platelets Not Reportable 11/14/17 02:50 Platelet Satelliting Not Reportable 11/14/17 02:50 Plt Morphology Comment Not Reportable 11/14/17 02:50 RBC Morphology Not Reportable 11/14/17 02:50 Dimorphic RBCs Not Reportable 11/14/17 02:50 Polychromasia Not Reportable 11/14/17 02:50 Hypochromasia Not Reportable 11/14/17 02:50 Poikilocytosis Not Reportable 11/14/17 02:50 Anisocytosis 1+ 11/14/17 02:50 Microcytosis Not Reportable 11/14/17 02:50 Macrocytosis Not Reportable 11/14/17 02:50 Spherocytes Not Reportable 11/14/17 02:50 Pappenheimer Bodies Not Reportable 11/14/17 02:50 Sickle Cells Not Reportable 11/14/17 02:50 Target Cells Not Reportable 11/14/17 02:50 Tear Drop Cells Rare 11/14/17 02:50 Ovalocytes 1+ 11/14/17 02:50 Helmet Cells Few 11/14/17 02:50 [place] Bodies Not Reportable 11/14/17 02:50 [place] Rings Not Reportable 11/14/17 02:50 [place] Cells Few 11/14/17 02:50 Bite Cells Not Reportable 11/14/17 02:50 Crenated Cell Not Reportable 11/14/17 02:50 Elliptocytes Not Reportable 11/14/17 02:50 Acanthocytes (Spur) Rare 11/14/17 02:50 Rouleaux Not Reportable 11/14/17 02:50 Hemoglobin C Crystals Not Reportable 11/14/17 02:50 Schistocytes Not Reportable 11/14/17 02:50 Malaria parasites Not Reportable 11/14/17 02:50 Param Bodies Not Reportable 11/14/17 02:50 Hem Pathologist Commnt No 11/14/17 02:50 PT 13.7 Sec. (12.2-14.9) 11/11/17 08:10 INR 1.00 (0.87-1.13) 11/11/17 08:10 APTT 31.8 Sec. (24.2-36.6) 11/11/17 08:10 D-Dimer 886.47 ng/mlDDU (0-234) H 11/11/17 05:26 Heparin Anti-Xa Level < 0.10 U.I./ml (0.3-0.7) L 11/14/17 Unknown POC ABG pH 7.123 (7.35-7.45) L 11/14/17 03:05 POC ABG pCO2 38.4 (35-45) 11/14/17 03:05 POC ABG pO2 90 (80-105) 11/14/17 03:05 POC ABG HCO3 12.6 11/14/17 03:05 POC ABG Total CO2 14 11/14/17 03:05 POC ABG O2 Sat 93 11/14/17 03:05 POC ABG Base Excess -17 11/14/17 03:05 FiO2 100 % 11/14/17 03:05 Sodium 142 mmol/L (137-145) 11/14/17 02:50 Potassium 4.4 mmol/L (3.6-5.0) D 11/14/17 02:50 Chloride 97.5 mmol/L (98-107) L 11/14/17 02:50 Carbon Dioxide 12 mmol/L (22-30) L D 11/14/17 02:50 Anion Gap 37 mmol/L 11/14/17 02:50 BUN 55 mg/dL (9-20) H 11/14/17 02:50 Creatinine 4.2 mg/dL (0.8-1.5) H 11/14/17 02:50 Estimated GFR 19 ml/min 11/14/17 02:50 BUN/Creatinine Ratio 13 % 11/14/17 02:50 Glucose 240 mg/dL (75-100) H 11/14/17 02:50 POC Glucose 241 (70-105) H 11/14/17 05:03 Hemoglobin A1c 6.6 % (4-6) H 11/11/17 09:34 Lactic Acid 12.30 mmol/L (0.7-2.0) H* 11/14/17 02:50 Uric Acid 9.3 mg/dL (3.5-7.6) H 11/13/17 15:53 Calcium 8.0 mg/dL (8.4-10.2) L 11/14/17 02:50 Total Bilirubin 0.50 mg/dL (0.1-1.2) 11/14/17 02:50 AST 147 units/L (5-40) H 11/14/17 02:50 ALT 88 units/L (7-56) H 11/14/17 02:50 Alkaline Phosphatase 139 units/L (35-129) H 11/14/17 02:50 Total Creatine Kinase 182 units/L (55-170) H 11/14/17 02:50 CK-MB (CK-2) 11.9 ng/mL (0.0-4.0) H 11/14/17 02:50 CK-MB (CK-2) Rel Index 6.5 (0-4) H 11/14/17 02:50 Troponin T 0.101 ng/mL (0.00-0.029) H* D 11/14/17 02:50 NT-Pro-B Natriuret Pep 91264 pg/mL (0-450) H 11/11/17 05:26 Total Protein 5.6 g/dL (6.3-8.2) L D 11/14/17 02:50 Albumin 2.2 g/dL (3.9-5) L 11/14/17 02:50 Albumin/Globulin Ratio 0.6 % 11/14/17 02:50 Triglycerides 271 mg/dL (2-149) H 11/11/17 05:26 Cholesterol 243 mg/dL (50-199) H 11/11/17 05:26 LDL Cholesterol Direct 146 mg/dL (50-130) H 11/11/17 05:26 HDL Cholesterol 43 mg/dL (40-59) 11/11/17 05:26 Cholesterol/HDL Ratio 5.65 % 11/11/17 05:26 Urine Color Yellow (Yellow) 11/13/17 15:06 Urine Turbidity Cloudy (Clear) 11/13/17 15:06 Urine pH 5.0 (5.0-7.0) 11/13/17 15:06 Ur Specific [place] 1.021 (1.003-1.030) 11/13/17 15:06 Urine Protein 100 mg/dl mg/dL (Negative) 11/13/17 15:06 Urine Glucose (UA) 50 mg/dL (Negative) 11/13/17 15:06 Urine Ketones Neg mg/dL (Negative) 11/13/17 15:06 Urine Blood Sm (Negative) 11/13/17 15:06 Urine Nitrite Neg (Negative) 11/13/17 15:06 Urine Bilirubin Neg (Negative) 11/13/17 15:06 Urine Urobilinogen < 2.0 mg/dL (<2.0) 11/13/17 15:06 Ur Leukocyte Esterase Neg (Negative) 11/13/17 15:06 Urine WBC (Auto) 6.0 /HPF (0.0-6.0) 11/13/17 15:06 Urine RBC (Auto) 2.0 /HPF (0.0-6.0) 11/13/17 15:06 U Epithel Cells (Auto) 1.0 /HPF (0-13.0) 11/13/17 15:06 Urine Creatinine 132.6 mg/dL (0.1-20.0) H 11/13/17 18:00 Urine Sodium 18 mmol/L 11/13/17 18:00 Urine Total Protein 191 mg/dL (5-11.8) H 11/13/17 18:00 Hep Bs Antigen Non-reactive (Negative) 11/13/17 15:53 Hep B Core IgM Ab Non-reactive (NonReactive) 11/13/17 15:53 Hepatitis C Antibody Non-reactive (NonReactive) 11/13/17 15:53 HIV 1&2 Antibody Rapid Non react (Non React) 11/13/17 15:53 HIV P24 Antigen Non react (Non React) 11/13/17 15:53 Blood Type B POSITIVE 11/14/17 03:00 Antibody Screen Negative 11/14/17 03:00 - Imaging and Cardiology Chest x-ray: image reviewed (lobar consodildation) Imaging and Cardiology: V/Q SCAN WITH PE
[2017-11-14] MEDS: Vasostrict 20 UNIT in NACL 0.9% 100 ML IV SCH ×2 (07:25→07:29)
--- NOTE | 2017-11-14 09:38 | Progress Note ---
Subjective Principal diagnosis: PNA; PE; HF Interval history: Patient was seen today for follow-up on multiple renal related issues Events of 24 hours vitals labs intake output medications were reviewed Significant changes and patient's clinical status currently intubated renal function worsening patient critically ill He was in BiPAP yesterday Interdisciplinary Notes were also reviewed Past medical history: Reviewed Social history: Reviewed Allergies: Reviewed Medication: Reviewed Labs: Reviewed Physical examination Gen.: No acute distress HEENT: Oral mucosa moist, mild pallor no icterus Neck: Supple no thyromegaly nodular mass or JVD Chest: Clear to auscultation anteriorly Heart: Regular rate and rhythm S1 and S2 heard Abdomen: Soft nontender no renal bruit no CVA tenderness no suprapubic fullness Extremity: Edema approximately 1+ dry skin no purpuric rash Dermatology: Dry skin no rash Neurological: Intubated Assessment and plan Acute renal failure worsening renal function patient currently likely has acute tumor necrosis given the clinical scenario of hypoxemia respiratory failure He is in need for initiation of renal replacement therapy at this time would like to discuss with family members available Lactic acidosis: Appears to be multifactorial in his case; follow-up serial lactate level Respiratory failure currently being followed by pulmonary services concerns about pneumonia pulmonary embolism Noncompliant patient was not taking any blood pressure medication is currently not following up with physician properly Elevated liver enzyme likely resulting from hypoxic insult ? Sepsis related Drop in hemoglobin without any obvious bleeding or blood loss noted to monitor serial hemoglobin and hematocrit this appears to be multifactorial Overall prognosis appears to be guarded to poor at this time continue with supportive care patient is critically ill More than 35 minutes were spent in direct patient care today Also discussed with ICU team about the plan of care need to initiate renal replacement therapy personally consider a Vas-Cath placement TREVA today [facility]point Objective - Vital Signs Vital signs: Vital Signs - 12hr 11/13/17 11/13/17 11/13/17 21:41 21:50 21:51 Temperature Pulse Rate 108 H 113 H Respiratory 52 H 44 H Rate Blood Pressure 164/88 164/88 O2 Sat by Pulse 94 95 94 Oximetry 11/13/17 11/13/17 11/13/17 22:00 22:11 22:21 Temperature Pulse Rate 110 H 123 H 117 H Respiratory 49 H 39 H 16 Rate Blood Pressure 161/88 161/88 164/88 O2 Sat by Pulse 93 92 95 Oximetry 11/13/17 11/13/17 11/13/17 22:31 22:41 22:51 Temperature Pulse Rate 112 H 109 H 114 H Respiratory 46 H 51 H 39 H Rate Blood Pressure 164/88 164/88 161/88 O2 Sat by Pulse 95 98 94 Oximetry 11/13/17 11/13/17 11/13/17 23:00 23:01 23:11 Temperature Pulse Rate 111 H 111 H 111 H Respiratory 46 H 44 H 47 H Rate Blood Pressure 175/91 175/91 175/91 O2 Sat by Pulse 94 95 92 Oximetry 11/13/17 11/13/17 11/13/17 23:21 23:31 23:32 Temperature 98.2 F Pulse Rate 104 H 107 H Respiratory 44 H 48 H Rate Blood Pressure 175/91 175/91 O2 Sat by Pulse 95 90 Oximetry 11/13/17 11/13/17 11/14/17 23:41 23:51 00:01 Temperature Pulse Rate 101 H 96 H 94 H Respiratory 43 H 38 H 43 H Rate Blood Pressure 175/91 155/84 147/72 O2 Sat by Pulse 80 L 85 79 L Oximetry 11/14/17 11/14/17 11/14/17 00:11 00:20 00:30 Temperature Pulse Rate 95 H 100 H 94 H Respiratory 46 H 35 H 25 H Rate Blood Pressure 147/72 138/93 122/76 O2 Sat by Pulse 90 73 L 87 Oximetry 11/14/17 11/14/17 11/14/17 00:40 00:41 00:51 Temperature Pulse Rate 119 H 111 H 104 H Respiratory 4 L 13 23 Rate Blood Pressure 89/48 152/89 129/76 O2 Sat by Pulse 95 86 84 Oximetry 11/14/17 11/14/17 11/14/17 01:01 01:11 01:21 Temperature Pulse Rate 112 H 62 Respiratory 14 17 24 Rate Blood Pressure 126/84 149/129 42/25 O2 Sat by Pulse 84 71 L Oximetry 11/14/17 11/14/17 11/14/17 01:31 01:41 01:51 Temperature Pulse Rate 74 71 Respiratory 76 H 117 H Rate Blood Pressure 200/102 52/14 119/32 O2 Sat by Pulse 92 91 88 Oximetry 11/14/17 11/14/17 11/14/17 02:01 02:11 02:20 Temperature Pulse Rate 61 151 H 139 H Respiratory 12 22 24 Rate Blood Pressure 119/32 167/77 109/55 O2 Sat by Pulse 76 L 96 92 Oximetry 11/14/17 11/14/17 11/14/17 02:30 02:40 02:50 Temperature Pulse Rate 127 H 122 H 119 H Respiratory 24 24 24 Rate Blood Pressure 92/53 88/46 84/47 O2 Sat by Pulse 88 88 Oximetry 11/14/17 11/14/17 11/14/17 03:00 03:02 03:08 Temperature 97.9 F Pulse Rate 115 H 117 H Respiratory 24 Rate Blood Pressure 80/43 80/43 O2 Sat by Pulse 85 94 Oximetry 11/14/17 11/14/17 11/14/17 03:10 03:21 03:30 Temperature Pulse Rate 119 H 109 H 105 H Respiratory 24 24 24 Rate Blood Pressure 89/47 89/47 69/34 O2 Sat by Pulse 85 83 L 70 L Oximetry 11/14/17 11/14/17 11/14/17 03:40 03:51 04:00 Temperature Pulse Rate 103 H 123 H 117 H Respiratory 24 24 24 Rate Blood Pressure 89/41 102/57 92/50 O2 Sat by Pulse 62 L 75 L 66 L Oximetry 11/14/17 11/14/17 11/14/17 04:10 04:21 04:31 Temperature Pulse Rate 108 H 61 25 L Respiratory 24 24 Rate Blood Pressure 75/39 44/16 44/16 O2 Sat by Pulse 56 L 62 L 85 Oximetry 11/14/17 11/14/17 11/14/17 04:40 04:50 05:00 Temperature Pulse Rate 146 H 133 H 114 H Respiratory 97 H 24 24 Rate Blood Pressure 99/15 130/74 81/44 O2 Sat by Pulse 91 68 L 75 L Oximetry 11/14/17 11/14/17 11/14/17 05:11 05:21 05:31 Temperature Pulse Rate 60 33 L 49 L Respiratory 24 24 29 H Rate Blood Pressure 81/44 81/44 159/99 O2 Sat by Pulse 96 99 Oximetry 11/14/17 11/14/17 05:41 05:51 Temperature Pulse Rate 49 L 32 L Respiratory 24 24 Rate Blood Pressure 61/28 61/28 O2 Sat by Pulse Oximetry - Lab 11/14/17 02:50 11/14/17 02:50 Most recent lab results Calcium 8.0 mg/dL (8.4-10.2) L 11/14/17 02:50 Urine Creatinine 132.6 mg/dL (0.1-20.0) H 11/13/17 18:00 Urine Sodium 18 mmol/L 11/13/17 18:00 Urine Total Protein 191 mg/dL (5-11.8) H 11/13/17 18:00
[2017-11-17 06:39] LABS: Albumin 2.4 g/dL (3.8-4.8); Gamma Globulin 0.9 g/dL (0.8-1.7)
--- NOTE | 2017-12-06 14:26 | Death Summary ---
Summary - Providers Date of service: 12/15/16 Consults: 11/11/17 09:30 Consult to Physician [CONS] Routine Consulting Provider: PAT LOYOLA Reason For Exam: chest pain Place consult to:: Clau Plunkett Notified:: yes Phone number called:: text message Was contact made?: Yes If yes, spoke with:: Clau Time called:: 09:48 11/12/17 15:16 Consult to Physician [CONS] Routine Consulting Provider: ARPAN HERRERA Reason For Exam: Acute hypoxic respiratory failure Place consult to:: pulmon Notified:: office Phone number called:: [phone] Was contact made?: Yes If yes, spoke with:: hossein Time called:: 15:45 11/12/17 15:17 Consult to Physician [CONS] Routine Consulting Provider: MONSERRAT FARMER Reason For Exam: acute renal failure Place consult to:: Nephrology Notified:: office Phone number called:: [phone] Was contact made?: Yes If yes, spoke with:: cliff Time called:: 15:48 11/14/17 00:29 Consult to Dietitian/Nutrition [CONS] Routine Physician Instructions: Reason For Exam: Reason for Consult: Write/Manage Tube Feeding 11/14/17 00:46 Consult to Dietitian/Nutrition [CONS] Routine Physician Instructions: Reason For Exam: Reason for Consult: Evaluate nutritional intake Attending: RICHIE SADLER MD - summary Date of admission: 11/11/17 09:13 Date of : 11/14/17 Reason for admission: sepsis secondary [place] Procedures/treatments rendered: Patient is a 42-year-old male who was admitted to the hospital with shortness of breath noted to have pneumonia and sepsis. With elevated d-dimer also, multiple organ failure required BiPAP and ICU placement. He was started on empiric antibiotic with infectious disease is following. He was noted to have diabetic cardiomyopathy with ejection fraction of 25-30% cardiology also was consulted. The patient while he appears to have had some mild improvements able to speak TO have significant shortness of breath at flat subsequently went into acute respiratory distress secondary to ARDS. He was intubated but dislodged tube had reintubation fortunately . He was brought to the condition of his admission to have pulmonary embolism for which we'll start a heparin drip. Pertinent studies: V/Q Scan -high probablity for PE - Final diagnosis (1) Sepsis Note: Final diagnosis: (2) Pneumonia Note: Final diagnosis: (3) Metabolic acidosis Note: Final diagnosis: (4) LAUREN (acute kidney injury) Note: Final diagnosis: (5) Acute respiratory failure with hypoxia Note: Final diagnosis: (6) ARDS (adult respiratory distress syndrome) Note: Final diagnosis: (7) Pulmonary embolism Qualifiers: Pulmonary embolism type: other Chronicity: acute Acute cor pulmonale presence: without acute cor pulmonale Qualified Code(s): I26.99 - Other pulmonary embolism without acute cor pulmonale Note: Final diagnosis: (8) Dilated cardiomyopathy Note: Final diagnosis:
== END 2017-11-14 10:41 | DRG 871 ==
LOC: ED 04:17 → 4A 09:13 → CC1 11-13 01:47
PROVIDERS: ADMIT Internal Medicine; ATTEND Internal Medicine
PROC: 4A033R1 Measurement of Arterial Saturation, Peripheral, Percutaneous Approach (ICD-10-PCS; principal; 2017-11-11)
PROC: 5A09457 Assistance with Respiratory Ventilation, 24-96 Consecutive Hours, Continuous Positive Airway Pressure (ICD-10-PCS; 2017-11-11)
PROC: 5A1935Z Respiratory Ventilation, Less than 24 Consecutive Hours (ICD-10-PCS; 2017-11-14)
PROC: 0BH17EZ Insertion of Endotracheal Airway into Trachea, Via Natural or Artificial Opening (ICD-10-PCS; 2017-11-14)
DX: A41.9 Sepsis, unspecified organism (principal); I26.99 Other pulmonary embolism without acute cor pulmonale; J18.9 Pneumonia, unspecified organism; N17.0 Acute kidney failure with tubular necrosis; J96.01 Acute respiratory failure with hypoxia; I42.0 Dilated cardiomyopathy; Z91.19 Patient's noncompliance with other medical treatment and regimen; I16.0 Hypertensive urgency; E87.6 Hypokalemia; E78.5 Hyperlipidemia, unspecified; I12.9 Hypertensive chronic kidney disease with stage 1 through stage 4 chronic kidney disease, or unspecified chronic kidney disease; E11.22 Type 2 diabetes mellitus with diabetic chronic kidney disease; N18.3 Chronic kidney disease, stage 3 (moderate)
CPT/HCPCS: 36415; 36600; 71010; 78582; 80048; 80053; 80061; 80074; 81001; 82140; 82550; 82553; 82570; 82803; 82962; 83036; 83880; 84156; 84165; 84166; 84300; 84484; 84550; 85007; 85014; 85018; 85025; 85049; 85379; 85520; 85610; 85730; 86038; 86850; 86900; 86901; 87040; 87400; 87449; 87806; 92950; 93005; 93010; 93306; 93970; 94002; 94640; 94660; 94760; 96365; 96366; 96367; 96368; 96372; 96375; 96376; A9270-GY; A9540; A9558; J0171; J0330; J0360; J0456; J0696; J1170; J1644; J1815; J2250; J2270; J2405; J2543; J3010; J3370; J7040; J7050; J7060; J7070